=== PATIENT | male | born 1955 | race Caucasian/White ===

== ENCOUNTER 2020-05-18 20:42 | Inpatient (IN) | payer OTHER ==
[~2020-05-18] VITALS: Ht 175.3 cm; Wt 66.2 kg
--- OUTSIDE RECORDS SUMMARY | ~2020-05-18 | XMS | Encounter Summary ---
Demographics + + + | Address | [address] [facility] [facility] | | | [place] [address] | + + + | Home Phone | | + + + | Preferred Language | Unknown | + + + | Marital Status | Single | + + + | Anabaptist Affiliation | Unknown | + + + | Race | Unknown | + + + | Ethnic Group | Unknown | + + + Author + + + | Author | [facility] | | | and [place] | + + + | Organization | Located Within [facility] | | | and [place] | + + + | Address | Unknown | + + + | Phone | Unavailable | + + + Care Team Providers + +------+ + | Care Mix House Operator Name | Role | Phone | + +------+ + PCP | Unavailable | + +------+ + Encounter Details +--------+ + + + + | Date | Type | Department | Care Team | Description | +--------+ + + + + | 01/05/ | Hospital | [facility] | Conversion | Pain | | 2016 | Encounter | CONVERSION DEP [address] | Transaction, | | | | | [address] | Provider Unknown | | | | | [facility] [place] | [phone] | | | | | [phone] | | | | | | [phone] | | | +--------+ + + + + Social History + +-------+ +--------+------+ | Tobacco Use | Types | Packs/Day | Years | Date | | | | | Used | | + +-------+ +--------+------+ | Never Assessed | | | | | + +-------+ +--------+------+ + + + | Sex Assigned at | Date Recorded | | | | + + + | Not on file | | + + + documented as of this encounter Plan of Treatment Not on filedocumented as of this encounter Procedures + +--------+ + + + | Procedure Name | Priori | Date/Time | Associated Diagnosis | Comments | | | ty | | | | + +--------+ + + + | CT ABDOMEN PELVIS W | Routin | 07/06/2015 | | Results for this | | CONTRAST | e | 2:05 AM | | procedure are in the | | | | PDT | | results section. | + +--------+ + + + documented in this encounter Results CT Abdomen Pelvis w Contrast (07/06/2015 2:05 AM PDT) + + | Specimen | + + | | + + + + + | Narrative | Performed At | + + + | This is a non-reportable procedure without a radiologist report and | | | is used for image storage only | | + + + + + | Procedure Note | + + | Mik Salas Sulma - 06/06/2019 1:30 PM PDT This is a non-reportable procedure | | without a radiologist report and isused for image storage only | + + documented in this encounter Visit Diagnoses + + | Diagnosis | + + | Pain Generalized pain | + + documented in this encounter"
--- OUTSIDE RECORDS SUMMARY | ~2020-05-18 | XMS | Clinical Summary ---
Demographics + + + | Address | [address] | | | [place] [address] | + + + | Home Phone | | + + + | Preferred Language | Unknown | + + + | Marital Status | Single | + + + | Anabaptism Affiliation | Unknown | + + + | Race | Unknown | + + + | Ethnic Group | Unknown | + + + Author + + + | Author | [facility] | | | [facility] | + + + | Organization | [facility] | | | and [place] | + + + | Address | Unknown | + + + | Phone | Unavailable | + + + Care Team Providers + +------+ + | Care Road Equipment Operator Name | Role | Phone | + +------+ + | Laz Flaherty MD | PCP | Unavailable | + +------+ + Allergies Not on File Medications Not on file Active Problems Not on file Social History + +-------+ +--------+------+ | Tobacco [...] on file | | + + + Last Filed Vital Signs + + + + + | Vital Sign | Reading | Time Taken | Comments | + + + + + | Blood Pressure | 153/76 | 01/21/2016 12:52 PM | | | | | PDT | | + + + + + | Pulse | 81 | 01/21/2016 12:52 PM | | | | | PDT | | + + + + + | Temperature | - | - | | + + + + + | Respiratory Rate | - | - | | + + + + + | Oxygen Saturation | - | - | | + + + + + | Inhaled Oxygen | - | - | | | Concentration | | | | + + + + + | Weight | 49.9 kg (110 lb) | 01/21/2016 12:52 PM | | | | | PDT | | + + + + + | Height | 177.8 cm (5' 10") | 01/05/2016 9:11 AM | | | | | PDT | | + + + + + | Body Mass Index | 15.78 | 01/05/2016 9:11 AM | | | | | PDT | | + + + + + Plan of Treatment + + +-------+ + | Health Maintenance | Due Date | Last | Comments | | | | Done | | + + +-------+ + | Vaccine: | | | | | Dtap/Tdap/Td (1 - | 2 | | | | Tdap) | | | | + + +-------+ + | Vaccine: Zoster (1 | | | | | of 2) | 3 | | | + + +-------+ + | Vaccine: | | | | | Pneumococcal 65+ (1 | 8 | | | | of 1 - PPSV23) | | | | + + +-------+ + | Vaccine: Influenza | | | | | (#1) | 0 | | | + + +-------+ + Results Not on filefrom Last 3 Months
--- OUTSIDE RECORDS SUMMARY | ~2020-05-18 | XMS | Clinical Summary ---
Demographics + + + | Address | [address] [facility] | | | [place] [address] | + + + | Home Phone | | + + + | Preferred Language | Unknown | + + + | Marital Status | Single | + + + | Alevism Affiliation | Unknown | + + + | Race | Unknown | + + + | Ethnic Group | Unknown | + + + Author + + + | Author | [facility] | | | [facility] | + + + | Organization | [facility] | | | and [place] | + + + | Address | Unknown | + + + | Phone | Unavailable | + + + Care Team Providers + +------+ + | Care Screw Machine Operator Name | Role | Phone | [...]
--- OUTSIDE RECORDS SUMMARY | ~2020-05-18 | XMS | Encounter Summary ---
Demographics + + + | Address | [address] | | | [place] [address] | + + + | Home Phone | | + + + | Preferred Language | Unknown | + + + | Marital Status | Single | + + + | Scientology Affiliation | Unknown | + + + | Race | Unknown | + + + | Ethnic Group | Unknown | + + + Author + + + | Author | [facility] | | | and [place] | + + + | Organization | [facility] | | | and [place] | + + + | Address | Unknown | + + + | Phone | Unavailable | + + + Care Team Providers + +------+ + | Care Engineer Sergeant Name | Role | Phone | + +------+ + PCP | Unavailable | + +------+ + Encounter Details +--------+ + + + + | Date | Type | Department | Care Team | Description | +--------+ + + + + | 03/13/ | Hospital | [facility] | Laz Vizcarra, | Unspecified | | 2008 | Encounter | [facility] | [address] | Hepatitis | | | | CLINICAL DECISION | [place] | | | | | [address] [place] [address] | [id number] | | | | | [place] | | | | | | [phone] | | | | | | [phone] | | | +--------+ + + + [...] + +--------+ + + + | CT GUIDED NEEDLE | Routin | 03/13/2009 | | Results for this | | PLACEMENT | e | 9:31 AM | | procedure are in the | | | | PDT | | results section. | + +--------+ + + + documented in this encounter Results CT Guided Needle Placement (03/13/2009 9:31 AM PDT) + + | Specimen | + + | | + + + + + | Narrative | Performed At | + + + | [id number] | | | Page 1 RADIOLOGY | | | CDU 78489/ | | | [facility] | | | CENTER NAME: [place] [address] | | | | | | | | | DATE OF : 1955 ORDER NUMBER: | | | [id number] EXAM DATE/TIME: 03/13/2009 07:53 A ORDERING PHYSICIAN: | | | LAZ VIZCARRA ORDER DETAIL: [id number] / / HCT EXAM DESCRIPTION: | | | CT GUIDED NEEDLE BIOPSY | | | | | | PROCEDURE CT-guided liver biopsy. HISTORY Hepatitis C. | | | DESCRIPTION OF PROCEDURE The procedure and its risks were discussed | | | with the patient and all questions answered. The patient wished to | | | proceed and an informed consent was signed. The skin over the right | | | lobe of the liver was prepped and draped in the usual sterile fashion | | | and 1% lidocaine was used as local anesthesia. Using CT | | | guidance, a 17-gauge coaxial needle was placed into the right lobe of | | | the liver. A series of 18-gauge core biopsies were then obtained | | | using coaxial technique and submitted to pathology. The needle tract | | | was embolized with Gelfoam and then removed. The procedure was | | | tolerated well, without immediate complication. IMPRESSION Status | | | post CT-guided liver biopsy without incident. Read by SHEN Cintron | | | MD ZAHRAA 03/13/2009 09:24 A Electronically Signed by SHEN Cintron | | | MD ZAHRAA 03/13/2009 12:32 P A DT: | | | 03/13/2009 12:15 P Jeanine/ryann/[id number]/ cc: LAZ VIZCARRA MD | | | SHEN VITAL MD | | + + + + + | Procedure Note | + + | Mik Salas - 06/17/2019 4:50 AM PDT | | [id number] Page 1 | | RADIOLOGY CDU 22906/ | | OPS | | [facility] NAME: [address] | | [place] [address] | | | | DATE OF : 1955 | | | | ORDER NUMBER: [id number] | | EXAM DATE/TIME: 03/13/2009 07:53 A | | ORDERING PHYSICIAN: LAZ VIZCARRA | | ORDER DETAIL: [id number] / / HCT | | EXAM DESCRIPTION: CT GUIDED NEEDLE BIOPSY | | | | PROCEDURE | | CT-guided liver biopsy. | | | | HISTORY | | Hepatitis C. | | | | DESCRIPTION OF PROCEDURE | | The procedure and its risks were discussed with the patient and all | | questions answered. The patient wished to proceed and an informed | | consent was signed. The skin over the right lobe of the liver was | | prepped and draped in the usual sterile fashion and 1% lidocaine was | | used as local anesthesia. | | | | Using CT guidance, a 17-gauge coaxial needle was placed into the right | | lobe of the liver. A series of 18-gauge core biopsies were then obtained | | using coaxial technique and submitted to pathology. The needle tract was | | embolized with Gelfoam and then removed. | | | | The procedure was tolerated well, without immediate complication. | | | | IMPRESSION | | Status post CT-guided liver biopsy without incident. | | | | Read by | | SHEN VITAL MD 03/13/2009 09:24 A | | Electronically Signed by | | SHEN VITAL MD 03/13/2009 12:32 P | | | | A | | P | | NATHANIEL/ryann/[id number]/ | | cc: LAZ VIZCARRA MD | | SHEN VITAL MD | + + documented in this encounter Visit Diagnoses + + | Diagnosis | + + | Hepatitis, unspecified | + + documented in this encounter"
--- OUTSIDE RECORDS SUMMARY | ~2020-05-18 | XMS | Encounter Summary ---
Demographics + + + | Address | [address] | | | [place] [address] | + + + | Home Phone | | + + + | Preferred Language | Unknown | + + + | Marital Status | Single | + + + | Yarsani Affiliation | Unknown | + + + | Race | Unknown | + + + | Ethnic Group | Unknown | + + + Author + + + | Author | [facility] | | | and [place] | + + + | Organization | [facility] | | | and [place] | + + + | Address | Unknown | + + + | Phone | Unavailable | + + + Care Team Providers + +------+ + | Care Personal Consultant Name | Role | Phone | + +------+ + PCP | Unavailable | + +------+ + Encounter Details +--------+ + + + + | Date | Type | Department | Care Team | Description | +--------+ + + + + | 01/05/ | Hospital | [facility] | Conversion | Pain | | 2016 | Encounter | CONVERSION DEP [address] | Transaction, | | | | | [address] | Provider Unknown | | | | | [facility] [place] | [phone] | | | | | [phone] | | | | | | [phone] | | | +--------+ + + + [...]
--- OUTSIDE RECORDS SUMMARY | ~2020-05-18 | XMS | Encounter Summary ---
Demographics + + + | Address | [address] [facility] [facility] | | | [place] [address] | + + + | Home Phone | | + + + | Preferred Language | Unknown | + + + | Marital Status | Single | + + + | Rastafarian Affiliation | Unknown | + + + | Race | Unknown | + + + | Ethnic Group | Unknown | + + + Author + + + | Author | [facility] | | | and [place] | + + + | Organization | [facility] | | | and [place] | + + + | Address | Unknown | + + + | Phone | Unavailable | + + + Care Team Providers + +------+ + | Care News Camera Operator Name | Role | Phone | + +------+ + PCP | Unavailable | + +------+ + Encounter Details +--------+ + + + + | Date | Type | Department | Care Team | Description | +--------+ + + + + | 03/13/ | Hospital | [facility] | Laz Vizcarra, | Unspecified | | 2008 | Encounter | [facility] | [address] | Hepatitis | | | | CLINICAL DECISION | [place] | | | | | [address] [place] [address] | [address] | | | | | [place] | | | | | | [phone] | | | | | | [phone] | | | +--------+ + + + [...] Performed At | + + + | [id number] | | | Page 1 RADIOLOGY | | | CDU 19934/ | | | [facility] | | | CENTER NAME: [place] [address] | | | | | | | | | DATE OF : 1955 ORDER NUMBER: | | | [id number] EXAM DATE/TIME: 03/13/2009 07:53 A ORDERING PHYSICIAN: [...] DT: | | | 03/13/2009 12:15 P Jeanine/ryann/[id number]/ cc: LAZ VIZCARRA MD | | | SHEN VITAL MD | | + + + + + | Procedure Note | + + | Mik Salas - 06/17/2019 4:50 AM PDT | | [id number] Page 1 | | RADIOLOGY CDU 09341/ | | OPS | | [facility] NAME: [address] | | [place] [address] | | | | DATE OF : 1955 | | | | ORDER NUMBER: [id number] | | EXAM DATE/TIME: 03/13/2009 07:53 A [...] | A | | P | | NATHANIEL/ryann/[id number]/ | | cc: LAZ VIZCARRA MD | | SHEN VITAL MD | + + documented in this encounter Visit Diagnoses + + | Diagnosis | + + | Hepatitis, unspecified | + + documented in this encounter"
[~2020-05-18 20:42] MED LIST: ASPIRIN EC325 MG PO; BENZTROPINE MESY1 MG PO; COZAAR25 MG PO; DOCUSATE SODIU250 MG PO; DOXEPIN HCL10 MG PO; IBUPROFEN600 MG PO; LIPITOR20 MG PO; METFORMIN HCL500 MG PO; NORCO 5-325 TA1 EACH PO; PROZAC10 MG PO
--- NOTE | 2020-05-19 | NUR ---
BROUGHT pt FROM ED TO UNIT ON STRETCHER, pt ABLE TO MOVE SELF TO BED. WRIST, ANKLE AND BELLY SHACKLES PER JAMES HERNÁNDEZ, 2 AT BEDSIDE. THIS RN IN ROOM FOR ASSESSMENT AND ADMISSION.
--- NOTE | 2020-05-19 01:00 | NUR ---
ASSESSMENT DONE. UNABLE TO AUSCULTATE DUE TO PAPR. NEWMAN PLACED, CLEAR URINE RETURNED. IVF INFUSING PER ORDERS, MED GIVEN (SEE MAR). OKAY FROM [facility] TO REMOVE ONE WRIST SHACKLE AT A TIME SO pt CAN LAY ON SIDE. LEFT SHACKLE REMOVED. pt POSITIONED ON LEFT SIDE, WITH MULTIPLE PILLOWS. ON 3L O2 VIA NC. NO REQUESTS AT THIS TIME. GUARDS REMAIN AT BEDSIDE.
--- NOTE | 2020-05-19 02:30 | NUR ---
ROUNDED ON pt. PROVIDED FRESH WATER. NO FURTHER REQUESTS AT THIS TIME. GUARDS AT BEDSIDE.
--- NOTE | 2020-05-19 03:30 | NUR ---
ASSESSMENT DONE. pt REPORTED THAT IT STILL "FEELS TIGHT TO BREATH" REPOSITIONED TO RIGHT SIDE, LEFT WRIST SHACKLED, RIGHT WRIST FREE. NEWMAN EMPTIED. NO FURTHER REQUESTS AT THIS TIME. GUARDS AT BEDSIDE.
--- NOTE | 2020-05-19 05:03 | NUR ---
IV INFUSION COMPLETED. SL. LABS DRAWN. ATTEMPTED TO TITRATE O2 DOWN, pt DESAT TO 80'S BACK TO 3L O2. pt REPOSITIONED TO SIT STRAIGHT UP. ENCOURAGED MOVEMENT. ANKLE, BELLY, AND LEFT WRIST SHACKLES IN PLACE. TWO GUARDS AT BEDSIDE. NO FURTHER REQUESTS. CALL LIGHT WITHIN REACH.
--- NOTE | 2020-05-19 09:01 | NUR ---
IN ROOM FOR ASSESSMENT AND VITALS, MEDS, BREAKFAST. PT STAETS HE IS FEELING BETTER OVERALL, BUT STILL NOTES THE TIGHTNESS IN HIS CHEST. PATIENT DENIES PAIN OTHERWISE. PT TO BE STARTED ON REMDESIVIR TODAY. RT IN ROOM. PT CURRENTLY ON 4 L NC. CONTINUE TO MONITOR.
--- NOTE | 2020-05-19 09:24 | NUR ---
DISCUSSED PLAN OF CARE AT LENGTH WIHT PATIENT. DISCUSSED NEED TO INITIATE PRONING AND POSITION CHANGES IN BED. DISCUSSED POTENTIAL NEED FOR MECHANICAL VENTILATION IF THINGS WORSEN WITH RESPIRATORY STATUS. PATIENT EXPRESSES DESIRES THAT THIS IS SOMETHING HE WOULD WANT IF HIS RESPIRATORY STATUS WORSENED. PT HAS HAD TO BE TURNED UP TO 6 L WHILE SITTING UP TRYING TO EAT. PT SEEMS TO DESATURATE WITH ANY USE OF ENERGY. WILL MONITOR THIS CLOSELY. IV REMDESIVIR STARTED.
[2020-05-19] MEDS ORDERED: CAPZASIN-HP42.5 GM TOP (09:32)
[2020-05-19] MEDS ORDERED: ALLERGY EYE DRO10 M1 OU (09:45)
[2020-05-19] MEDS ORDERED: NAPHCON-A EYE D15 ML OU (09:46)
[2020-05-19] MEDS ORDERED: VENTOLIN HFA18 GM INH (10:22)
[2020-05-19] MEDS ORDERED: DOXEPIN HCL100 MG PO (10:24)
[2020-05-19] MEDS ORDERED: BIOTENE ORALBAL42 G1 MM (10:24)
[2020-05-19] MEDS ORDERED: PROSCAR5 MG PO (10:27)
[2020-05-19] MEDS ORDERED: HALOPERIDOL1 MG PO (10:28)
[2020-05-19] MEDS ORDERED: OMEPRAZOLE20 MG PO (10:30)
[2020-05-19] MEDS ORDERED: DITROPAN XL10 MG PO (10:31)
[2020-05-19] MEDS ORDERED: DOXYCYCLINE MO100 MG PO (10:33)
[2020-05-19] MEDS ORDERED: PREDNISONE20 MG PO (10:34)
--- NOTE | 2020-05-19 10:34 | NUR ---
MED REC COMPLETE
--- NOTE | 2020-05-19 10:48 | NUR ---
DR. DANIELS IN TO SEE PATIENT AT THIS TIME.
--- NOTE | 2020-05-19 11:00 | NUR ---
PATIENT IN ISOLATION DUE TO COVID. SPOKE WITH PRODUCT DEVELOPMENT WORKER. SHE STATES PATIENT IS NORMALLY INDEPENDENT AND NO KNOWN BARRIERS TO RETURN TO [facility] AT DISCHARGE.
--- NOTE | 2020-05-19 11:21 | NUR ---
PATIENT INTO PRONE POSITION WITH HELP OF GUARDS AT THIS TIME. PT ABLE TO STAND AT BEDSIDE, ALTHOUGH IS RELATIVELY UNSTEADY ON FEET. SP02 DOWN TO MID 70s WITH ACTIVITY, OXYGEN INCREASED DURING THIS TIME BUT NOW BACK AT 4 L NC. PT STATES HE IS COMFORTABLE AND WILL TRY AND REST IN THIS POSITION FOR LONG POSSIBLE. DISCUSSED WITH PATIENT NEED FOR PICC LINE PLACEMENT THIS AFTERNOON AN D AGREEABLE TO THIS. BELLY CHAIN AND WRIST CUFFS REMOVED PER [facility] GUARDS. NEWMAN REMAINS INTACT. CONTINUE TO MONITOR.
--- NOTE | 2020-05-19 12:51 | NUR ---
PICC LINE NURSE IN ROOM TO PLACE PICC LINE. PATIENT ABLE TO PRONE FROM [phone]. PATIENT USES CALL LIGHT AND STATES HE WANTS TO TURN OVER. PATIENT ABLE TO STAND AT SIDE OF BED WITH ASSISTANCE, BUT IS VERY WEAK. SP02 DOWN TO 70s WITH THIS MOVEMENT ON 4 L. PATIENT TURNED UP TO 6 L. DENTURES CLEANED OUT AND FIXODENT USED TO REPLACE. PATIENT NOW ON OXYMASK AT 10 L AND ONLY SP02 90-91%.
--- NOTE | 2020-05-19 13:51 | NUR ---
PICC INSERTION NOTE. ORDERS RECIEVED TO EVALUATE ADONIS FOR POSSIBLE PICC INSERTION. AFTER REVIEWING THE CHART AND INTERVIWING THE PT, NO ABSOLUTE CONTRAINDICATIONS WERE FOUND. RISKS AND COMPLICATIONS OF PICC LINES WERE DISCUSSED AND INFORMED CONSENT WAS SIGNED PRIOR TO THE START OF THE PROCEDURE. ADONIS UNDERSTANDS THAT HE NEEDS TO ASK HIS CARE TEAM FOR ANY QUESTIONS REGARDING HIS PICC. THE RIGHT BASILIC VEIN WAS ACCESSED AT 1.5CM BELOW THE SKIN AND THERE WERE NO DIFFICULTIES ADVANCING THE IV, GUIDEWIRE, INTRODUCER, OR PICC. A MAGNET TRACKER WAS USED AND SHOWED THE TIP IN A CENTRAL LOCATION. A SINGLE CXR WAS TAKEN AND STERILE DRESSING WAS APPLIED. THE PICC DRAWS BLOOD AND FLUSHES EASILY. A NON STERILE LIGHT PRESSURE DRESSING WAS PLACED OVER THE INSERTION SITE TO REDUCE BRUISING AND BLEEDING. THE PT TOLERATED THE PROCEDURE WELL.
--- NOTE | 2020-05-19 14:25 | NUR ---
PT IN ISOLATION, WITH 2 GUARDS FROM [facility] IN PT RM. WILL FOLLOW NEEDED
--- NOTE | 2020-05-19 14:48 | NUR ---
PATIENT TURNED ONTO LEFT SIDE IN BED AT 1430. OXYGEN TURNED BACK TO DOWN TO 6 L OXYMASK. NEWMAN EMPTIED FOR 300 CONCENTRATED URINE. CONTINUE TO MONITOR. 2 GUARDS REMAIN IN ROOM.
--- NOTE | 2020-05-19 17:35 | NUR ---
PATIENT HELPED TO SIT UP IN BED TO EAT DINNER. PT REPORTS THAT HIS BREATHING FEELS TIGHT IN HIS CHEST STILL, AND WORSE COMPARED TO YESTERDAY AND THIS AM. PT NOW ON VAPOTHERM AT 50% AND 40 L FLOW. NEWMAN EMPTIED FOR 160 ML. PICC WORKING WELL, FLUSHIGN AND DRAWS BACK BLOOD WELL. APPLE JUICE GIVEN FOR LOW CBG OF 54. CONTINUE TO MONIOTR.
--- NOTE | 2020-05-19 19:30 | NUR ---
Report received, orders acknowledged. Patient sitting up at edge of bed with feet on floor. Two guards at bedside. Call light within reach.
--- NOTE | 2020-05-19 21:00 | NUR ---
Patient laying on back, respirations even and unlabored. SpO2 in the upper 90's on vapotherm, settings at 40L and Fi02 of 50%. Vital signs taken, assessment complete. PM medications given. BG of 112, no insulin given. Santos catheter emptied, 275 mls of concentrated urine. Patient positioned onto right side, warm blanket provided. Patient denies further needs at this time, call light within reach.
--- NOTE | 2020-05-19 23:00 | NUR ---
Patient laying on left side, respirations even and unlabored. SpO2 of 97% on vapotherm, settings at 40L, Fi02 of 50%. Two guards at bedside. Call light wihtin reach.
--- NOTE | 2020-05-20 00:15 | NUR ---
Patient laying in bed, respirations even and unlabored. SpO2 in mid-90;s on vapotherm, settings at 40L, 50% Fi02. Vital signs taken, assessment complete. Patient able to stand up at edge of bed with 1PA, HR increases to low 100's. New linens changed on bed. Patient returned to bed, assisted into prone position in reverse trendelenburg. HR decreases to the 70's, SpO2 increases to 98%. Two correctional officers at bedside, patient in ankle cuffs. Patient denies further needs, call light within reach.
--- NOTE | 2020-05-20 02:20 | NUR ---
Patient sleeping in bed in prone position with the bed in reverse trendelenburg. Vapotherm in place, settings of 40L and 50% Fi02 with an Sp02 of 99%. Call light within reach.
--- NOTE | 2020-05-20 03:55 | NUR ---
Patient sleeping in bed on right side, respirations even and unlabored. Sp02 of 98% on vapotherm: settings at 40L and 50% Fi02. Patient rouses easily to voice. Vital signs taken, assessment complete. Santos catheter emptied with 275 mls of yellow urine. Two correctional officers at bedside, patient in ankle cuffs. Denies needs at this time, call light within reach.
--- NOTE | 2020-05-20 05:30 | NUR ---
Patient sleeping in bed on left side, respirations even and unlabored. Sp02 of 98% on vapotherm: settings at 40L and 50% Fi02. Patient rouses easily to voice. PICC line assessed, flushes and draws blood per protocol. Labs drawn and sent off. Patient denies needs, falls back asleep easily. Call light within reach.
--- NOTE | 2020-05-20 07:32 | NUR ---
REPORT RECEIVED FROM DWAYNE KUMARI. PT RESTING ON LEFT SIDE WITH EYES CLOSED. OFFICERS AT BEDSIDE. VAPOTHERM AT 40L AND 50% WITH O2 SATURATION OF 98%. RR=23 . NO REQUESTS OR COMPLAINTS AT THIS TIME. BREAKFAST ORDERED. CALL LIGHT WITHIN REACH.
--- NOTE | 2020-05-20 09:00 | NUR ---
MORNING ASSESSMENT AND MEDICATION DUE. PT WATCHING TV. PT DENIES PAIN AND NAUSEA AND STATES HE FEELS "BETTER" TODAY. PT TOLERATING VAPO THERM WITH SETTINGS AT 40LPM AND 45% O2 AT 96%. PT WEANED TO 40%, PT TOLERATING WELL WITH O2 SATURATIONS REMAINING ABOVE 92%. ASSESSMENT DONE. UNABLE TO ASCULATATE LUNG, HEART AND BOWEL TONES R/T PAPAR UNIT IN PLACE. PT DECLINES MIRALAX AND SENNA STATING HE IS HAVING BOWEL MOVMENT. PT DENIES NEED TO USE RESTROOM AT THIS TIME. NEWMAN DRAINING TO GRAVITY. OLD ABRASION NOTED TO LEFT KNEE. OLD SCABS IN PLACE. MEDICATIONS GIVEN. PICC LINE SHOWS GOOD BLOOD RETURN. NO ADDITIONAL REQUESTS OR COMPLAINTS. OFFICERS AT BEDSIDE. CALL LIGHT WITHIN REACH.
--- NOTE | 2020-05-20 09:39 | NUR ---
PUMP ALARMING, INFUSION AND FLUSH COMPLETE. PICC LINE ASSESSED, BRISK BLOOD RETURN NOTED. LINE FLUSHED AND HEPARIN LOCKED PER PROTOCOL. ALCOHOL CAP APPLIED. PT CONTINUES TO MAINTAIN O2 SATURATIONS ABOVE 92% ON VAPOTHERM AT 40LPM AND 40%FIO2. PT WATCHING TV. NO ADDITIONAL REQUESTS OR COMPLAINTS. CALL LIGHT WITHIN REACH. OFFICERS AT BEDSIDE.
--- NOTE | 2020-05-20 10:25 | NUR ---
THIS RN TO BEDSIDE TO CHECK ON PT. PT RESTING WITH EYES CLOSED, RR EVEN AND UNLABORED. O2 SATURATION REMAINS ABOVE 92% ON VAPOTHERM AT 40LPM AND 40% FIO2. PT ALLOWED TO REST. OFFICERS AT BEDSIDE.
--- NOTE | 2020-05-20 11:30 | NUR ---
PT REPOSITIONED TO PRONE POSITION. PILLOWS USED TO PROP PT FOR COMFORT. PT REPORTS FEELING COMFORTABLE. O2 SATURATION AT 95% WITH PT ON VAPOTHERM SETTINGS OF 40LPM AT 40FIO2. PT RESTING WITH EYES CLOSED. RR = 15, EVEN AN UNLABORED. OFFICER AT BEDSIDE. NEWMAN CATHETER EMPTIES. NO ADDITIONAL REQUESTS OR COMPLAINTS AT THIS TIME.
--- NOTE | 2020-05-20 12:39 | NUR ---
NOON ASSESSMENT AND MEDICAITON DUE. PT FINISHED RESTING IN PRONE POSITION. PT UP TO EDGE OF BED FOR LUNCH. ASSESSMENT DONE. PT DENIES PAIN AND NAUEA AND CONTINES TO STATES HIS BREATHING IS "BETTER." PT REPORTS FEELING HE CAN BREATH BETTER THAN HE COULD THIS MORNING. PTS ABODMEN FIRM TO TOUCH. PT REPORTS THIS IS NORMAL BUT AGREES TO TAKE MIRALAX. TREMORS NOTED. PT REPORS TREMORS ARE PER HIS BASELINE. 1 PERSON ASSIST UP TO CHAIR. LINENES CHANGED. PT DEMONSRATES USE OF CORNET X5 AND I.S. REACHING 1250ML. NO ADDITIONAL REQUESTS OR COMPLAINTS AT THIS TIME. CALL LIGHT WITHIN REACH. OFFICERS AT BEDSIDE.
--- NOTE | 2020-05-20 13:40 | NUR ---
PT IS STILL UNDER PRECAUTIONS. [facility] GUARDS POSTED BOTH IN AND OUTSIDE OF PT'S RM.
--- NOTE | 2020-05-20 14:39 | NUR ---
THIS RN TO ROOM TO CHECK ON PT. PT NOW ON HIGH FLOW NASAL CANULA PER RT AT 15 LITERS. O2 SATURATION AT 96%. PT REMAINS UP TO CHAIR. OFFICER AT BEDSIDE. CALL LIGHT WITHIN REACH. NO ADDITIONAL REQUESTS OR COMPLAINTS AT THIS TIME.
--- NOTE | 2020-05-20 16:27 | NUR ---
AFTERNOON ASSESSMENT DUE. PT REMAINS UP TO CHAIR. PT DENIES PAIN AND NAUSEA. PT REPORTS OCCATIONAL SHOTNESS OF BREATH. CORNET USED X5 AND I.S. USE DEMONSTRATED REACHING 1250. 1 PERSON ASSIST BACK TO BED. O2 SATURATION REMAINS ABOVE 92% ON 15L O2 BY HIGH FLOW NASAL CANULA. ABODOMEN REAMAINS UNCHANGED BUT PT REPORTS "FEELING MUCH BETTER" NOW THAT HE HAD A BOWEL MOVMENT. CATHETER CARE AND MESFIN CARE PERFORMED. PT DENIES ADDITIONAL REQUESTS OR COMPLAINTS. WATER AND 7-UP REFILLED. OFFICER AT BEDSIDE. CALL LIGHT WITHIN REACH.
--- NOTE | 2020-05-20 17:55 | NUR ---
PT HERE FOR COVID POSITIVE PNEUMONIA. PT UP TO CHAIR WITH 1 PERSON ASSIST. PT ALSO SPENT 1 HOUR IN PRONE POSITION THIS SHIFT. PT BEGAIN SHIFT ON VAPOTHERM AT 40LPM AND 50% FIO2. PT WEANED THIS SHIFT TO HIGH FLOW NASAL CANULA AT 15 LITERS WITH O2 SATURATIONS ABOVE 92%. NEWMAN CATHETER REMAINS IN PLACE, QUANITTY SUFFICIENT. PT AFEBRIAL THIS SHIFT. PICC LINE WNL, BRISK BLOOD RETURN, HEPARIN LOCKED. RESTRAINTS PER [employer] REAMIN IN PLACE PER OFFICERS. PT HAS YET TO USE CALL LIGHT, OFFICERS CALL WITH NEEDS.
--- NOTE | 2020-05-20 18:23 | NUR ---
THIS RN TO ROOM TO CHECK ON PT. PT RESTING ON BACK WITH EYES CLOSED. HEAD OF BED ELEVATED AT 30 DEGREES, RR = 26. O2 AT 100% ON HIGH FLOW NASAL CANULA AT 15L. PT ALLOWED TO REST. BED RAILS UP. CALL LIGHT WITHIN REACH. OFFICERS AT BEDSIDE.
--- NOTE | 2020-05-20 19:15 | NUR ---
Report received, orders acknowledged. Patient laying in bed watching tv. High flow oxygen at 15L in place, SpO2 of 90%. Call light within reach.
--- NOTE | 2020-05-20 21:15 | NUR ---
Patient laying in bed with high flow oxygen at 15L in place, Sp02 of 95% and RR in the low 20's. Vital signs taken, assessment complete. PM medications given. One security officers and guards in room at bedside, one security officers and guards sitting outside of room. Abdominal chain removed in order to be able to position patient throughout shift. Patient now laying on left side. Water refreshed, warm blanket provided. PICC line assessed, flushes and returns blood per protocol. PICC line hep locked. Patient denies further needs at this time, call light within reach.
--- NOTE | 2020-05-20 22:00 | NUR ---
Patient on high flow oxygen at 15L, oxygen saturations down to 79%. Patient laying on left side currently. Patient assisted to a prone position in reverse trendelenburg and instructed to take breathe through nostrils. Oxygen saturations climb to mid 90's after several minutes. RR remains in the low 20's but patient reports "I've been feeling more short of breath all day since I stopped wearing the other oxygen (vapotherm)." HR in the 60's. Patient denies further needs. Call light within reach. Will continue to monitor.
--- NOTE | 2020-05-20 22:30 | NUR ---
Patient on high flow oxygen at 15L, in prone position in reverse trendelenburg. Saturations steadily decrease to the low 80's. RT called. This RN and RT in room to assess patient. Vapotherm put in place with settings at 40L and 60% FiO2. SpO2 climbs to 95%, RR in the low 20's. Patient continues to be in prone position in reverse trendelenburg. Call light within reach. *Prior to patient putting on vapotherm, acapella is used, which helps patient to cough
--- NOTE | 2020-05-21 01:00 | NUR ---
Patient sleeping in bed on left side, respirations even and unlabored. Vapotherm in place, settings at 40L and Fi02 of 60%. SpO2 of 99%, RR of 22. One licensed loan officer at bedside. One licensed loan officer outside of room. Call light within reach.
--- NOTE | 2020-05-21 02:01 | NUR ---
Patient sleeping in bed on left side, in reverse trendelenburg. Vapotherm in place, settings at 40L and 60% Fi02. SpO2 of 98-100%, RR of 18. One canine enforcement officer in room at bedside. One canine enforcement officer outside of room. Ankle cuffs in place. Call light within reach.
--- NOTE | 2020-05-21 03:00 | NUR ---
Patient sleeping in bed on left side, respirations even and unlabored. Vapotherm in place, settings at 40L and 60% Fi02. RR of 18, SpO2 of 96%. Ankle cuffs in place, one chairman and chief executive officer at bedside. One chairman and chief executive officer outside of room. Call light within reach of patient.
--- NOTE | 2020-05-21 06:00 | NUR ---
Patient sleeping in bed, respirations even and unlabored. Vapotherm in place with settings of 40L and 60% Fi02, SpO2 of 99%. RR of 18. Patient rouses easily to voice. Labs drawn from PICC line, which flushes and returns blood per protocol. New clave placed on PICC. Patient coughed up small, pink mucous into emesis bag. Water provided, patient denies further needs. Call light within reach.
--- NOTE | 2020-05-21 08:31 | NUR ---
Patient sitting up in bed. Respirations even and unlabored at this time. Bed rails up X2. Call light in reach.
--- NOTE | 2020-05-21 09:33 | NUR ---
Assessment completed. Patient denies shortness of breath. Alert and oriented, sitting up in bed, eating breakfast. Denies pain and discomfort. Call light in reach, bed rails up X2. Circulation remains intact. wearing [employer] cuffs. Denies other needs. Takes AM medications without difficulty.
--- NOTE | 2020-05-21 10:01 | NUR ---
Sitting up in bed, remains on vapotherm at this time. Respirations even and unlabored. Denies shortness of breath. Call light in reach, bed rails up X2. PICC line converted to hep lock. Denies other needs.
--- NOTE | 2020-05-21 11:01 | NUR ---
Sitting up in bed, watching TV. Respirations remain even and unlabored. Call light in reach, bed rails up X2.
--- NOTE | 2020-05-21 12:43 | NUR ---
Sitting up in bed, eating lunch. Resp even and unlabored. Assessment completed. No changes from AM assessment noted. Call light in reach, bed rails elevated and restraints from [employer] remain in place with no changes to patient circulation noted.
--- NOTE | 2020-05-21 12:55 | NUR ---
BECAUSE OF RESTRICTIONS, I AM UNABLE TO VISIT PT. PT IS FLANKED BY [employer] GUARDS
--- NOTE | 2020-05-21 13:47 | NUR ---
Head of bed, laid flat, patient turned to left side lying position. Santos bag emptied. Call light in reach, Bed rails up X2. Denies pain, shortness of breath and other needs at this time.
--- NOTE | 2020-05-21 14:34 | NUR ---
Lying on left side with eyes closed, respirations even and unlabored at this time. O2 sats 93%, remains on Vapotherm, respirations 22 at this time. Allowed to rest at this time.
--- NOTE | 2020-05-21 15:35 | NUR ---
Turned to right side. O2 sats remain in mid to high 90's on Vapotherm. Denies pain and other needs at this time. Call light in reach. Be rails up X2.
--- NOTE | 2020-05-21 17:34 | NUR ---
Assessment completed. Denies pain and other needs at this time. Head of bed elevated, patient currently in semi-bean's position for supper. VS obtained, Santos catheter bag emptied. Call light in reach, bed rails up X2. Remains in [employer] restraints. Circulation remains WNL. some bruising to Right forearm noted.
--- NOTE | 2020-05-21 19:30 | NUR ---
SHIFT REPORT RECEIVED. PATIENT LAYING ON BACK IN BED WITH HOB AT 30 DEGREES. O2 SAT 86% ON VAPOTHERM AT 30L 50% Fi02.
--- NOTE | 2020-05-21 20:03 | NUR ---
PATIENT REPOSITIONED ONTO LEFT SIDE. DENIES FEELING SOB. RR 20. VAPOTHERM ADJUSTED TO 30L 60% Fi02. O2 SATS IMPROVED TO 89% AFTER 3-5 MINS. PATIENT ATE 80% OF HIS DINNER. DENIES GI UPSET. GOOD URINE OUTPUT IN NEWMAN. ORAL TEMP WNL. PICC LINE RETURNED BLOOD AND SL WITH 20 MLS. IV SITE IN LEFT FA FLUSHED EASILY. PATIENT DENIED ANY NEEDS. CALL LIGHT IN REACH.
--- NOTE | 2020-05-21 20:40 | NUR ---
PATIENT PROVIDED WITH EVENING MEDS. PATIENT ENCOURAGED TO STAY ON HIS HIGH LEFT SIDE TOLERATED. PATIENT AGREEABLE. O2 SAT 94%, TITRATED TO 30L 55% Fi02. RR 18. PATIENT PROVIDED WITH FRESH WATER. DENIES ANY NEEDS. CALL LIGHT IN REACH.
--- NOTE | 2020-05-21 22:45 | NUR ---
PATIENT DESAT TO 85% WITHOUT IMPROVEMENT. STAFF ASSISTED PATIENT TO REPOSITION TO RIGHT SIDE. NEW PULSE OX SENSOR PLACED. O2 SAT IMPROVED TO 94% ON VAPOTHERM AT 30L 55% Fi02. PATIENT DENIED ANY CONCERNS. LIGHTS DIMMED AND TV OFF PER REQUEST. CALL LIGHT IN REACH.
--- NOTE | 2020-05-22 00:30 | NUR ---
PATIENT APPEARED TO BE SLEEPING SOUNDLY. WOKE ONLY WHEN RN TOUCHED PATIENT. PATIENT REPORTS BEING COMFORTABLE. VS STABLE, NO FEVER. UNACCURATE BP DUE TO PATIENT LAYING ON RIGHT SIDE WITH CUFF ON LEFT ARM. ALLOWED PATIENT TO REST. CALL LIGHT IN REACH. TOLERATING VAPOTHERM AT 30L 55% Fi02. O2 SATS 88-92%.
--- NOTE | 2020-05-22 03:30 | NUR ---
PATIENT HAVING INCREASED COUGHING WITH DESATS 77-80% WITH GOOD PLETH. STAFF IN ROOM. PATIENT PROVIDED WITH SIPS OF WATER AND REPOSITIONED TO LEFT SIDE. PATIENT TOLERATED WELL. DENIES FEELING SOB. VS STABLE. GOOD URINE OUTPUT. PATIENT DENIES ANY NEEDS. CALL LIGHT IN REACH.
--- NOTE | 2020-05-22 06:01 | NUR ---
PATIENT SLEEPING SOUNDLY. WOKE TO TOUCH. DENIES PAIN, SOB OR ANY CONCERNS. MORNING LABS DRAWN. PICC LINE FLUSHES EASILY AND RETURNS BLOOD SWIFTLY. LINE SL. VS STABLE. NEWMAN EMPTIED. PATIENT PROVIDED WITH CHAPSTICK AND FRESH ICE WATER. CALL LIGHT IN REACH. 97% ON VAPOTHERM AT 55% Fi02, TITRATED TO 50% Fi02 30L.
--- NOTE | 2020-05-22 08:50 | NUR ---
PT LAYING IN BED AWAKE AND ALERT. PT ASSISTED TO SIT AT THE SIDE OF THE BED FOR BREAKFAST, VAPOTHERM IN PLACE TITRATED UP BRIEFLY FOR ACTIVITY. PT IS ALERT AND ORIENTED X4 TO BASELINE, COOPERATIVE AND POLITE. PT HAS CORRECTIONAL RESTRAINTS IN PLACE X3 LIMBS, BELLY CHAIN.
--- NOTE | 2020-05-22 09:30 | NUR ---
PT ASSISTED UP TO THE CHAIR WITH STANDBY ASSIST FOR CORD MANAGEMENT. PT SELENE ACTIVITY WELL, DENIES PAIN, NAUSEA AND SOB. O2 REQUIREMENTS DECREASED ONCE POSITIONED UP IN THE CHAIR TO 30L/40%. CALL LIGHT IS WITHIN REACH. JAMES DUEÑAS AT THE BEDSIDE. PT ABLE TO PUT IN DENTURES WITH DENTURE CREAM. ALL LINENS CHANGED ON BED. NEWMAN CATH IN PLACE, DRAINING YELLOW URINE. CORRECTIONAL RESTRAINTS IN PLACE X3 LIMBS WITH BELLY CHAIN, SKIN INTEGRITY ASSESSED.
--- NOTE | 2020-05-22 10:15 | NUR ---
PICC LINE RETURNS BLOOD EASILY, HEP LOCKED, SITE IS INTACT, NO REDNESS OR SWELLING NOTED.
--- NOTE | 2020-05-22 12:30 | NUR ---
PT SITTING UP IN THE CHAIR WITH VAPOTHERM IN PLACE. PT ABLE TO EAT 100% OF HIS LUNCH, FEEDS HIMSELF. PT DENIES PAIN, NAUSEA, AND SOB AT THIS TIME. PICC SITE IS INTACT, NO REDNESS OR SWELLING NOTED. CALL LIGHT IS WITHIN REACH. DISCUSSED PLAN FOR BEDBATH LATER TODAY. IV SITE IN RT FOREARM IS INTACT, NO REDNESS OR SWELLING NOTED, FLUSHES EASILY. CORRECTIONAL RESTRAINTS IN PLACE X3 LIMBS WITH BELLY CHAIN, SKIN ASSESSED FOR INTEGRITY AND COMFORT.
--- NOTE | 2020-05-22 14:15 | NUR ---
FULL BEDBATH DONE BY COGNOS ANALYST AND RN. NEWMAN CATH CARES DONE. HAIR WASHED. PT SELENE WELL. PT BACK TO BED FROM CHAIR. PT NOTED TO HAVE RED AREA ON RT LOW BACK FROM BELLY CHAIN, JAMES DUEÑAS AT BEDSIDE, DISCUSSION OPTIONS INSTEAD OF BELLY CHAIN FOR RESTRAINT TO PROTECT SKIN ITEGRETY. PT POSITIONED ON LEFT SIDE WITH VAPOTHERM IN PLACE. PT DENIES PAIN, NAUSEA, AND SOB.
--- NOTE | 2020-05-22 14:40 | NUR ---
THIS BATCH MIXER ASSISTED DWAYNE GAUTHIER IN ROOM. BEDBAPATY MCMAHAN CAR EAND PATIENT VITALS COMPLETE. THIS BATCH MIXER NOTICE MARKINGS ON PATIENTS RIGHT/BACK SIDE FROM BELLY CHAIN, SKIN NOT BROKEN, RN NOTIFIED. 1 GUARD IN ROOM, 1 AT DOOR. CALL LIGHT IN REACH, NO OTHER NEEDS AT THIS TIME
--- NOTE | 2020-05-22 15:20 | NUR ---
[employer] BUSINESS MANAGER CUFF RESTRAINTS APPLIED TO PT INSTEAD OF CHAIN STYLE RESTRAINT BY JAMES SIMMONS FOR SKIN INTEGRITY.
--- NOTE | 2020-05-22 16:52 | NUR ---
pt vapotherm titrated to 35L flow with 45% fio2 per O2 sat of 83-88%
--- NOTE | 2020-05-22 17:35 | NUR ---
PT GIVEN DINNER WHILE SITTING UP HIGH IN BED. VAPOTHERM IN PLACE. CALL LIGHT IS WITHIN REACH, JAMES DUEÑAS AT THE BEDSIDE.
--- NOTE | 2020-05-22 17:50 | NUR ---
SKIN ASSESSED FOR PT COMFORT AND SAFETY DUE TO CORRECTIONAL RESTRAINTS
--- NOTE | 2020-05-22 18:08 | NUR ---
VAPOTHERM TITRATION - 927 - TRITRATED TO 30L AND 40% FROM 30L/50% 1415 - TITRATED TO 35L/60% DURING REPOSITON 1530 - TITRATED TO 30L/50% PT SELENE WELL
--- NOTE | 2020-05-22 19:45 | NUR ---
PATIENT DESAT TO 82% ON VPOTHERM AT 30L AND 45% Fi02. PATIENT SITTING UPRIGHT IN BED. RR 22. PATIENT DENIED FEELING SOB. CONSIDERED PATIENT'S TENDENCY TO BREATHE THROUGH HIS MOUTH, SWITCHED TO OXYMASK AT 10L AND THEN 15L. PATIENT SATS CONTINUE TO BE LESS THAN 88%. REPOSITIONED PATIENT TO RIGHT SIDE, VAPOTHERM WITH 30L 60% Fi02. 02 SATS IMPROVED TO 90%. ENCOURAGED PATIENT TO REST IN THIS POSIITON TOLERATED. PATIENT AGREEABLE, CALL LIGHT IN REACH.
--- NOTE | 2020-05-22 21:30 | NUR ---
PATIENT PROVIDED WITH EVENING MEDICATIONS. PATIENT DENIES SOB OR PAIN. REPORTS NEED TO HAVE BM. ASSISTED PATIENT TO BSC. PATIENT TRANSFERED WITH MINIMAL DIFFICULTY. MEDIUM LIQUID BM NOTED. PATIENT REFUSED MIRALAX, SENNA PROVIDED. PATIENT RETURNED TO BED. ORAL TEMP WNL. PATIENT DESAT TO LOW 80'S WITH VAPOTHERM IN PLACE FOR TRANSFER. PATIENT TURNED TO LEFT SIDE. PATIENT CONTINUES TO HAVE LOW O2 SATS, INCREASED VAPOTHERM TO 35L 60% Fi02. PATIENT SLOWLY IMPROVED TO 89-91% O2 SAT. PICC LINE FLUSHED, RETURNS BLOOD AND HEPA-LOCKED. NEWMAN CARE DONE. GOOD URINE OUTPUT. PATIENT GIVEN CHAPSTICK AND WATER. DENIES WANTING TO TAKE DENTURES OUT TONIGHT. CALL LIGHT IN REACH. LIGHTS DIMMED, TV OFF PER REQUEST.
--- NOTE | 2020-05-22 22:30 | NUR ---
PATIENT REPORTED ABD CRAMPING AND REQUEST TO USE BSC. BUDGET DIRECTOR ASSISTED PATIENT. SMALL LIQUID BM NOTED. VAPOTHERM TITRATED TO 100% Fi02 40L FOR ACTIVITY. PATIENT MAINTAINED O2 SATS OF 88%. TITRATED BACK TO 30L 65% Fi02 WHEN IN BED.
--- NOTE | 2020-05-23 02:50 | NUR ---
PATIENT REPORTS STOMACH CRAMPING. ASSISTED PATIENT TO THE BSC. PATIENT PASSED LARGE AMOUNT OF GAS AND A SMALL MUCOID CLEAR BM. TITRATED VPOTHERM TO 30L 100% Fi02 FOR TRANSFER. PATIENT TOLERATED WELL. ASSISTED BACK TO BED, TURNED TO RIGHT SIDE. VAPOTHERM BACK TO 30L 65% Fi02. PATIENT MAINTAINED O2 SATS GREATER THAN 88%. PATIENT PROVIDED WITH SIPS OF WATER AND CHAP STICK. DENIED FURTHER NEEDS AT THIS TIME. CALL LIGHT IN REACH.
--- NOTE | 2020-05-23 06:00 | NUR ---
PATIENT APPEARED TO BE SLEEPING SOUNDLY. WOKE TO TOUCH. MORNING LABS DRAWN. PATIENT AGREEABLE TO PRONING, CO AVAILABLE TO RELEASE 1 WRIST RESTRAINT. PATIENT OUT OF BED AND NEW LINENS APPLIED. NEW RED AREA NOTED ON PATIENT'S COCCYX, BLANCHABLE. PATIENT INTO PRONE POSITION WITH RIGHT ARM BY WAIST AND LEFT ARM UP. PUSH BUTTON CALL LIGHT PLACED IN PATIENT'S HAND, PATIENT DEMONSTRATED ABILITY TO USE CALL LIGHT. PATIENT REPORTS BEING COMFORTABLE IN THIS POSITION. NEWMAN EMPTIED. PICC LINE FLUSHED WITH 20ML NS AFTER LAB DRAW.
--- NOTE | 2020-05-23 07:50 | NUR ---
PT UP TO SIT AT THE SIDE OF THE BED. O2 SATURATION IMPROVES QUICKLY PT NASAL CANULA HAD MIGRATED OUT OF NOSTRALS WHILE LAYING IN BED ON ABD. PT IS COOPERATIVE AND POLITE, ALERT AND ORIENTED X4. WITH REPOSITION PT DENIES PAIN, NAUSEA, AND SOB. PT TRANSFERED TO THE CHAIR WITH ONLY STANDBY ASSIST FOR CORD MANAGEMENT. VITALS ARE WNL. PT GIVEN SUPPLIES FOR ORAL CARE, AND IS ABLE TO DO IT INDEPENDENTLY. ALL LINENS AND PT GOWN CHANGED, SCANT DRAINAGE OF URINE FROM CATH WITH PRONING NOTED. PT INCONTINENT OF SMEAR OF STOOL WHILE SITTING AT BEDSIDE, MESFIN CARE DONE.
--- NOTE | 2020-05-23 08:14 | NUR ---
PT O2 TITRATED TO 30L/45% O2 SATS ARE 90-94%
--- NOTE | 2020-05-23 08:40 | NUR ---
PICC LINE SITE IS INTACT, NO REDNESS OR SWELLING, BLOOD RETURNS EASILY, FLUSHES EASILY. IV SITE IN LEFT FOREARM IS INTACT, NO SWELLING OR REDNESS NOTED, FLUSHES EASILY. PT DENIES PAIN AT EITHER SITE.
--- NOTE | 2020-05-23 08:46 | NUR ---
PT HAS BREAKFAST, IS SITTING UP IN THE CHAIR EATING INDEPENDNENTLY. VITALS WNL.
--- NOTE | 2020-05-23 09:18 | NUR ---
DR. COLINDRES IN ROOM TO SEE PT. PT ALERT AND ORIENTED X4, ABLE TO COMMUNICATE EASILY.
--- NOTE | 2020-05-23 10:15 | NUR ---
PT TAKES ALL PO MEDS EASILY. PICC FLUSHED, BLOOD RETURNS EASILY, HEP LOCKED SITE. PT BACK TO BED FROM CHAIR, AMBULATES EASILY WITH STAND BY ASSIST FOR CORD MANAGEMENT. PT HIGH FOWLERS IN BED. CORRECTIONAL RESITRAINTS IN PLACE X4 LIMBS, FLAT BATTERY LOADER CUFF STYLE, ASSESED FOR COMFORT AND SAFETY. SKIN IS INTACT, NO OBSERVABLE IRRITATION NOTED FROM RESTRAINTS. PT DENIES PAIN, NAUSEA, AND SOB. JAMES DUEÑAS AT THE BEDSIDE.
--- NOTE | 2020-05-23 12:10 | NUR ---
vapotherm settings titrated to 30L and 40% FIO2, pt O2 sats are 92-96%
--- NOTE | 2020-05-23 12:12 | NUR ---
PT REPOSTIONED TO LEFT SIDE FROM BACK, SUPPORTED WITH PILLOWS. PT ABLE TO TURN TO SIDE EASILY TO ASSIST WITH REPOSTION.
--- NOTE | 2020-05-23 12:15 | NUR ---
IV SITE IN LEFT FOREARM IS INTACT, NO REDNESS OR SWELLING NOTED, FLUSHES EASILY, PT DENIES PAIN WITH FLUSH. PICC SITE IS INTACT, HEP LOCKED AT THIS TIME. CORRECTIONAL RESTRAINTS IN PLACE, SKIN ASSESSED FOR INTEGRITY AND PT SAFETY. ALL SKIN IS INTACT. PT DENIES DISCOMFORT WITH RESTRAINTS. PT DENIES PAIN, NAUSEA, AND SOB IN GENERAL.
--- NOTE | 2020-05-23 14:21 | NUR ---
pt repostioned to back from left side, sitting up high fowlers. skin assessed for integrity, correctional restraints assesed for pt safety and comfort. pt able to expectorate thick red/brown sputum with cough. O2 titrated to 30L and 50% FIO2 for O2 sat below 87%.
--- NOTE | 2020-05-23 16:10 | NUR ---
PT UP FROM BED TO CHAIR WITH STANDBY ASSIST FOR CORD MANAGEMENT. PT REMAINS IN CORRECTIONAL RESTRAINTS X4 LIMBS, SKIN ASSESSED FOR INTEGRITY, AND IS INTACT. PT IV SITE IS INTACT, NO REDNESS OR SWELLING NOTED, FLUSHES EASILY. PICC LINE SITE IS INTACT, REMAINS HEP LOCKED. PT REPORTS SOME GENERALIZED BODY ACHES, HOWEVER TEMP IS WNL, 500 MG PO TYLENOL GIVEN. NEWMAN CATH CARES DONE, PT SELENE WELL.
--- NOTE | 2020-05-23 17:20 | NUR ---
DINNER TAKEN TO PT. HE IS SITTING UP IN THE CHAIR, ALERT AND ORIENTED X4, WATCHING TV. PT ABLE TO FEED SELF. PT REPORTS "I'M FEELING BETTER". VAPOTHERM REMAINS AT 30L AND 50% FIO2, PT SATURATIONS VARY FROM 87-97% WITH THIS AMOUNT OF FLOW.
--- NOTE | 2020-05-23 19:30 | NUR ---
SHIFT REPORT RECEIVED. PATIENT RESTING IN RECLINER. WATCHING TV. CALL LIGHT IN HAND. TOLERATING VAPOTHERM 30L 50% Fi02. O2 SATS 90-95%. RR 20.
--- NOTE | 2020-05-23 20:15 | NUR ---
PATIENT PROVIDED WITH EVENING MEDS. DENIES ANY CONCERNS. VS STABLE. EVENING CARES DONE, PATIENT ASSISTED INTO BED. TOLERATES ACTIVITY WITH MILD DYSPNEA. PATIENT INTO BED ONTO LEFT SIDE. REPORTS BEING COMFORTABLE. DM AREAS PADDED FOR COMFORT. SKIN UNDER RESTRAINTS WNL. NEWMAN CARE DONE. PICC LINE FLUSHED WELL WITH 20ML NS AND HEPA-LOCKED. RETURNED BLOOD EASILY. CALL LIGHT IN HAND. LIGHTS DIMMED.
--- NOTE | 2020-05-23 21:05 | NUR ---
PATIENT REPORTS CRAMPING AND ABD PAIN. ASSISTED UP TO BSC. PATIENT HAD MEDIUM CLEAR JELLY STOOL. PATIENT THEN FELT RELIEF. ASSISTED BACK INTO BED. O2 SAT 86% ON VAPOTHERM AT 30L 50%, PATIENT RECOVERED QUICKLY ONCE IN BED. CALL LIGHT IN HAND.
--- NOTE | 2020-05-24 01:00 | NUR ---
PATIENT APPEARED TO BE SLEEPING SOUNDLY. WOKE WHEN RN ENTERED ROOM. PATIENT REQUEST TO MOVE TO HIS RIGHT SIDE. ASSISTED PATIENT IN TURNING. PATIENT DID NOT TOLERATE WELL WITH O2 SATS IN THE LOW 80'S. INCREASED TO 60% Fi02. AFTER SEVERAL MINS PATIENT AGREED TO TRY PRONING AGAIN. PATIENT ABLE TO ROLL HIMSELF TO HIS STOMACH AND STAFF ASSISTED WITH PILLOW PLACEMENT. PATIENT REPORTS FEELING COMFORTABLE. O2 SATS IMPROVED TO MID 90'S. Fi02 BACK TO 50%. CALL LIGHT IN PATIENT'S HAND.
--- NOTE | 2020-05-24 02:45 | NUR ---
NC WAS DISLODGED AND PATIENT DESAT TO LOW 80'S. STAFF INTO ROOM. PATIENT REQUEST TO MOVE. PATIENT WOULD LIKE TO LAY FLAT ON HIS BACK. ASSISTED PATIENT WITH LINEN CHANGE DUE TO LEAKING OF NEWMAN. PATIENT DENIED OTHER NEEDS. ALLOWED PATIENT TO REST. CALL LIGHT IN HAND.
--- NOTE | 2020-05-24 04:12 | NUR ---
PATIENT DESAT TO 84-86% CONSISTENTLY WHILE LAYING ON HIS BACK. ASSISTED PATIENT TO HIS LEFT SIDE. AFTER SEVERAL MINS PATIENT'S SATS DID NOT IMPROVE. VAPOTHERM ADJUSTED TO 35L 60%. PATIENT IMPROVED TO 90% O2 SAT. PATIENT DENIED ANY NEEDS. CALL LIGHT IN HAND.
--- NOTE | 2020-05-24 05:50 | NUR ---
MORNING LABS DRAWN. PICC LINE FLUSHED AND RETURNED BLOOD EASILY. FLUSHED WITH 20 ML NS. PATIENT REPORTS BEING COMFORTABLE. DENIES NEEDS. O2 SATS >90%. TITRATED BACK TO 50% Fi02. NEWMAN EMPTIED. PATIENT'S CALL LIGHT IN REACH.
--- NOTE | 2020-05-24 07:41 | NUR ---
pt sleeping soundly in bed at this time, no observable distress noted, vapotherm in place, o2 sat is 90-94%
--- NOTE | 2020-05-24 08:58 | NUR ---
PT UP TO THE CHAIR, ABLE TO WASH FACE, PLACE DENTURES INDEPENDENLTY WHEN GIVEN SUPPLIES. PT DENIES PAIN, NAUSEA, AND SOB AT THIS TIME. PT SERVED BREAKFAST, ABLE TO FEED SELF. PT TRANSFERED TO CHAIR WITH STAND BY ASSIST ONLY FOR CORD MANAGEMENT. CORRECTIONAL RESTRAINTS ASSESSED FOR PT SAFETY AND COMFORT. SKIN IS INTACT.
--- NOTE | 2020-05-24 09:07 | NUR ---
HEPRIN LOCKED PICC LINE, SITE IS INTACT, BLOOD RETURN OBTAINED EASILY, FLUSHES EASILY.
--- NOTE | 2020-05-24 09:34 | NUR ---
resp therapy in room to do oxymask trial.
--- NOTE | 2020-05-24 09:45 | NUR ---
PT ABLE TO SELENE 8L O2 VIA OXYMASK, SATS ARE MAINTAINED AT OR ABOVE 90%. IN TO SEE PT.
--- NOTE | 2020-05-24 09:50 | NUR ---
TITRATED O2 TO 10L FLOW VIA OXYMASK FROM 8L DUE TO DESAT.
--- NOTE | 2020-05-24 10:36 | NUR ---
PT SITTING UPRIGHT IN CHAIR WITH TV ON AND EYES CLOSED.
--- NOTE | 2020-05-24 11:25 | NUR ---
TITRATED PT O2 DOWN TO 8L O2 VIA OXYMASK FROM 10L
--- NOTE | 2020-05-24 11:33 | NUR ---
PT CORRECTIONAL RESTRAINTS ASSESSED FOR PT SAFETY AND COMFORT, SKIN REMAINS INTACT. PT SELENE 8L O2 VIA OXYMASK WELL. PT SITTING UP IN CHAIR AND WISHES TO REMAIN THERE, ADDITIONAL PILLOW GIVEN FOR NECK SUPPORT. PT REMAINS ALERT AND ORIENTED X4, DENIES PAIN, NAUSEA, AND SOB. PT IS WATCHING TV AND HAS CALL LIGHT WITHIN REACH. PT DENIES ANY NEEDS AT THIS TIME.
--- NOTE | 2020-05-24 12:00 | NUR ---
PT BROUGHT LUNCH BY JAMES DUEÑAS.
--- NOTE | 2020-05-24 12:07 | NUR ---
PT DESATS TO 72% ON ROOM AIR WHILE EATING LUNCH. THEN PLACED BACK ON VAPOTHERM BY RESP THERAPY.
--- NOTE | 2020-05-24 13:10 | NUR ---
PT PLACED BACK ON OXYMASK AT 8L FLOW PER PT REQUEST, O2 SATS REMAIN AT OR ABOVE 90%
--- NOTE | 2020-05-24 13:10 | NUR ---
PT CORRECTIONAL RESTRAINTS ASSESSED FOR PT SAFETY AND COMFORT, ALL SKIN IS INTACT. PT BOOSTED UP IN THE CHAIR, ADDITIONAL PILLOW FOR SUPPORT BEHIND BACK AND NECK. PT DECLINED OFFER TO GET BACK TO BED. PICC SITE IS INTACT, NO REDNESS OR SWELLING NOTED, REMAINS HEP LOCKED AT THIS TIME. PT HAS CALL LIGHT WITHIN REACH. PT DENIES ANY NEEDS AT THIS TIME.
--- NOTE | 2020-05-24 14:00 | NUR ---
PT DESATS TO 82% ON OXYMASK AT 8L FLOW WHILE SLEEPING, PT PLACED BACK ON VAPOTHERM AT 35L AND 60%, O2 SATS BETWEEN 91-95%
--- NOTE | 2020-05-24 16:06 | NUR ---
PT BACK TO BED FROM THE CHAIR, AMBULATES WELL WITH STANDBY ASSIST FOR CORD MANAGEMENT. PT SKIN ASSESSED, CORRECTIONAL RESTRAINTS IN PLACE, ALL SKIN IS INTACT. PT GIVEN PARTIAL BED BATH, ABLE TO DO SOME WASHING WHEN GIVEN WASH CLOTHS. NEWMAN CATH CARES DONE, GOWN CHANGED.
--- NOTE | 2020-05-24 17:23 | NUR ---
TITRATED VAPOTHERM SETTINGS DOWN TO 30L AND 50%. PT SITTING UP IN BED TO EAT DINNER. PT DENIES NAUSEA, SOB, AND PAIN AT THIS TIME. CORRECTIONAL RESTRAINTS ASSESSED FOR PT SAFETY AND COMFORT, SKIN INTACT.
--- NOTE | 2020-05-24 17:30 | NUR ---
PT ABLE TO EAT 100% OF DINNER AND ENSURE DRINK.
--- NOTE | 2020-05-24 19:33 | NUR ---
PATIENT DESATING TO 80% ON VAPOTHERM AT 30L AND 50% ON VAPOTHERM LAYING IN BED WITH HOB ELEVTAED TO 45 DEGREES. PATIENT ASSISTED TO LAY ON HIS LEFT SIDE. TITRATED TO 35L 60% Fi02. PATIENT DID NOT IMPROVE AFTER SEVERAL MINS. PATIENT AGREEABLE TO PRONING AT THIS TIME. PATIENT ABLE TO GET HIMSELF IN PRONE POSITION WITH MINIMAL ASSISTANCE. AFTER SEVERAL MINS PATIENT'S O2 SATS IMPROVED TO 86-87%. VAPOTHERM TO 40L AND 80% Fi02. PATIENT ABLE TO RECOVER, O2 SATS >90%. ALLOWED PATIENT TO REST FOR 5 MINS, VS STABLE. TITRATED BACK TO 35L 50% Fi02. AFTER 20MINS O2 SATS 93%. RR REMAINED LESS THAN 24 DURING THIS EPISODE. PATIENT HAS CALL LIGHT IN HAND. AGREES TO AT LEAST 1 HOUR OF PRONING.
--- NOTE | 2020-05-24 20:15 | NUR ---
PATIENT UNABLE TO TOLERATE PRONE POSITION. ASSISTED TO LEFT SIDE. PATIENT ABLE TO MAINTAIN O2 SATS GREATER THAN 88% ON VAPOTHERM AT 35L 50% Fi02. EVENING MEDS PROVIDED. NEWMAN CARE DONE. PATIENT DENIES ANY CONCERNS AT THIS TIME. SKIN UNDER RESTRAINS WNL. VS STABLE. CALL LIGHT IN HAND. LIGHTS DIMMED AND TV OFF.
--- NOTE | 2020-05-24 21:00 | NUR ---
PATIENT REPORTS THE NEED TO HAVE BM. ASSISTED PATIENT UP TO BSC. PATIENT PASSED LARGE AMOUNT OF GAS AND HAD LARGE MUCOID CLEAR STOOL. PATIENT ASSISTED WITH MESFIN CARE AND BACK INTO BED. PATIENT ON VAPOTHERM AT 35L 100% FOR TRANSFER, DESAT TO HIGH 70'S WITH ACTIVITY. PATIENT RECOVERED AFTER SEVERAL MINS IN BED. TITRATED BACK TO 30L 60% Fi02. PATIENT HAVING FREQUENT COUGHING FITS AND DARK BROWN SPUTUM. WATER PROVIDED.
--- NOTE | 2020-05-25 00:30 | NUR ---
PATIENT SLEEPING SOUNDLY. WOKE EASILY TO VOICE. VS STABLE. PATIENT TOLERATING VAPOTHERM 35L 60% Fi02. PATIENT DENIES ANY NEEDS. CALL LIGHT IN REACH.
--- NOTE | 2020-05-25 04:00 | NUR ---
PATIENT DESAT TO 82% WHILE SLEEPING. STAFF ENTERED ROOM. PATIENT WAS ON ROOM AIR, NC HAD BEEN TOTALLY TAKEN OFF. PATIENT SLEEPING SOUNDLY. WOKE PATIENT AND REPLACED NC. VAPOTHERM AT 35L 50% Fi02. PATIENT QUICKLY IMPROVED O2 SATS TO GREATER THAN 90%. PATIENT DENIED ANY NEEDS AT THIS TIME. CALL LIGHT IN REACH.
--- NOTE | 2020-05-25 06:00 | NUR ---
PATIENT DISPLACED NC, DESAT TO 84%. STAFF INTO ROOM. ASSISTED PATIENT WITH NC. PATIENT REPOSITIONED TO RIGHT SIDE. NEWMAN EMPTIED. PATIENT DENIED ANY NEEDS. CALL LIGHT IN HAND.
--- NOTE | 2020-05-25 07:37 | NUR ---
PATIENT SHIFT REPORT RECIEVED FROM BIOLOGY LECTURER RN. PATIENT RESTING IN BED WITH 2 GAURDS STANDING AT THE DOOR. WILL CONTINUE TO CLOSELY MONITOR. PATIENT ON VAPOTHERM AT 35L AND 50% FIO2.
--- NOTE | 2020-05-25 08:30 | NUR ---
PATIENT SHIFT ASSESSMENT COMPLETED. PATIENT RESTING IN BED THIS AM. ASSISTED PATIENT UP TO THE CHAIR FOR BREAKFAST. PATIENT TOLERATED WELL BUT DID DESAT WITH ACTIVITY TO THE CHAIR. LEANA IN THE ROOM WITH THIS RN. PATIENTS STATES HE DOES GET SOB WITH ACTIVITY. PATIENT RESTING IN THE CHAIR EATING BREAKFAST. INCREASED VAPOTHERM D/T PATIENT COUGHING D/T SWOLLOWING HIS EGGS WRONG. THIS RN TITRATED VAPOTHERM BACK DOWN AFTER INCIDENT. WILL CONTINUE TO TRY AND TITRATE OXYGEN DOWN TOLETRATED. BEDDING CHANGED. WILL CONTINUE TO CLOSELY MONITOR.
--- NOTE | 2020-05-25 10:02 | NUR ---
PATIENT RESTING IN THE CHAIR AT THIS TIME. PATIENTS SPO2 95% ON 35L AND 80%. PATIENT HAD SOME DESATS THIS AM WITH MOVING TO THE CHAIR AND TOOK ABOUT 30 MINUTES FOR SPO2 TO RETURN TO MID 90'S. WILL TITRATE NEXT TIME THIS RN IN TO SEE PATIENT. NO OTHER NEEDS AT THIS TIME. WILL CONTINUE TO CLOSELY MONITOR.
--- NOTE | 2020-05-25 11:03 | NUR ---
MD COLINDRES IN TO SEE PATIENT. WILL HOLD OFF ON CPAP D/T ASPIRATION INCIDENT THIS AM. NO OTHER NEEDS AT THIS TIME. WILL CONTINUE TO ENCOURAGE INCENTIVE SPIROMETER AND AQAPELLA TREATMENTS. WILL ENCOURAGE PRONING PATIENT THROUGHOUT THE DAY TOLERATED.
--- NOTE | 2020-05-25 12:30 | NUR ---
PATIENT RESTING IN THE CHAIR AT THIS TIME. VITALS COMPELTED. ASSESSMENT DONE. UNABLE TO LISTEN TO BREATH SOUNDS D/T PAPR. GABBYS PRESENT AT THIS TIME. PATIENT IS UP IN THE CHAIR. SPOKE WITH PATIENT ABOUT GETTING BACK TO BED IN ABOUT AN HOUR TO PRONE. THIS WILL ALLOW PATIENT SLUNCH TO SETTLE PRIOR TO LAYING ON HIS BELLY. NO OTHER NEEDS. FRESH WATER AT THE BEDSIDE. WILL CONTINUE TO CLSOELY MONITOR
--- NOTE | 2020-05-25 13:15 | NUR ---
Report received, orders acknowledged. Patient sitting up in chair with two point restraints in place on wrists and ankles. Vapotherm in place with settings of 30L and 60% Fi02. SpO2 of 93%, RR of 18. Two correctional officers sitting outside of patient room. Call light within reach of patient.
--- NOTE | 2020-05-25 13:30 | NUR ---
REPORT GIVEN TO QUOC RICE. ALL QUESTIONS ANSWERED. QUOC RICE WILL RESUME CARE AT THIS TIME.
--- NOTE | 2020-05-25 14:25 | NUR ---
Patient sitting in chair watching tv. Vapotherm in place with settings of 30L and 60% Fi02, Sp02 in the mid-90's and RR in the low 20's. Patient reports SOB is "better" and "I'm only short of breath when moving around." POC discussed, patient agreeable to prone positioning. Patient up to bed with SBA, correctional case records supervisor in room at bedside and wrist/ankle restraints in place. IS and acapella used while patient sitting up at edge of bed, coughing and deep breathing encouraged. Patient desaturates to low 80% with movement and using IS/acapella. Vapotherm settings increased to 30L and 85% Fi02. Patient assisted into prone position with pillows under chest for comfort. Patient Sp02 increases to 97%, vapotherm settings returned to original settings of 30L and 60% Fi02. Santos catheter emptied of 550 mls of dilute urine. Patient denies further needs, call light within reach.
--- NOTE | 2020-05-25 15:19 | NUR ---
Patient sleeping in prone position with bed in reverse trendelenburg. Vapotherm settings at 30L and 60% Fi02, SpO2 of 98%, RR of 22. Four-point restraints in place on wrists and ankles, two correctional officers sitting outside of room. Call light within reach.
--- NOTE | 2020-05-25 16:09 | NUR ---
Patient sleeping in bed, laying on left side, respirations even and unlabored. Vapotherm settings at 30L and 60% Fi02, with an Sp02 ranging from 93-96%. RR of 18. Two correctional officers sitting outside of room, with restraints in place on wrists and ankles. Call light within reach.
--- NOTE | 2020-05-25 18:06 | NUR ---
Patient up to chair for dinner with 1PA. Vapotherm in place with settings at 30L and 60% Fi02, with an SpO2 in the mid-90's. Patient desaturates to 78% with movement, breathing becomes more labored. Vapotherm increased to 30L and 95%, patient Sp02 climbs to 95%. Patient uses IS and acapella, deep breathing and coughing as well. Sp02 increases to 97%, vapotherm decreased to original settings of 30L and 60% Fi02. Dinner delivered, water refreshed. Patient denies further needs. One geographic area intelligence officer in room at patient bedside. Four point restraints in place on wrists and ankles. Vital signs taken, assessment complete. Call light within reach.
--- NOTE | 2020-05-25 19:30 | NUR ---
SHIFT REPORT RECEIVED. PATIENT RESTING IN RECLINER. TOLERATING VAPOTHERM 30L 60% Fi02. O2 SAT 98%, RR 14. CALL LIGHT IN REACH.
--- NOTE | 2020-05-25 21:00 | NUR ---
DISCUSSED PATIENT'S UNUSUAL BM WITH . RAVEN ORDERED FOR THE MORNING.
--- NOTE | 2020-05-25 21:00 | NUR ---
[place] [facility] [place] LARGE CLEAR MUCOID BM NOTED. PATIENT HAS OCCATIONAL CRAMPING AND ABD PAIN. NO NAUSEA. ABD IS SOFT, BUT TENDER. PATIENT DENIED FEELING CONSTIPATED AND DENIED THAT THESE BM ARE HIS NORMAL. ASSISTED PATIENT INTO BED. PATIENT TURNED TO LEFT SIDE. VAPOTHERM AT 100% Fi02 FOR ACTIVITY. O2 SATS 88% WHEN PATIENT RETURNED TO BED. TITRATED TO 35L 50% Fi02. PATIENT MAINTAINED O2 SATS GREATER THAN 88%. NEWMAN CARE DONE. EVENING MEDS GIVEN. PICC RETURNED BLOOD, FLUSHED WITH 20 ML NS AND HEPA-LOCKED. EVENING CARES DONE. PATIENT DENIED ANY OTHER NEEDS. CALL LIGHT IN REACH.
--- NOTE | 2020-05-26 00:30 | NUR ---
PATIENT SLEEPING SOUNDLY. WOKE EASILY TO VOICE. DENIES ANY NEEDS. NEWMAN DRAINING CLEAR URINE. TOLERATING VAPOTHERM 35L 50%. RR 16. CALL LIGHT IN REACH.
--- NOTE | 2020-05-26 01:59 | NUR ---
VAPOTHERM WAS ALARMING, NEW SALINE BAG HUNG. VAPOTHERM HAD STOPPED FLOWING SINCE THAT SALINE WAS EMPTY, SO PT DESATURATED TO 79%. INCREASED FIO2 TO 90% FOR ABOUT A MINUTE AND THEN TITRATED IT DOWN TO 55%. CURRENTLY SPO2 IS 89%.
--- NOTE | 2020-05-26 05:08 | NUR ---
ASSESSMENT COMPLETED AT THIS TIME, LIMITED DUE TO PAPR PPE. PT SLEEPING, WOKE EASILY WHEN SPOKEN TO. DENIES PAIN. RESPIRATIONS EVEN AND UNLABORED, VAPOTHERM CONTINUES AT 35L @ 55%. HR SINUS EAMON PER MONITOR. PT DENIES NAUSEA, ABDOMEN MILDLY DISTENDED. NEWMAN PATENT, DRAINING YELLOW URINE. PICC DRESSING C/D/I, HEPARIN LOCKED BY PRIOR NURSE. CORRECTIONAL RESTRAINTS REMAIN IN PLACE X4 EXTREMITIES, CMS AND SKIN INTACT. PT DENIES REQUESTS OR COMPLAINTS AT THIS TIME. CORRECTIONAL OFFICERS WITHIN VIEW OF PT AT ALL TIMES.
--- NOTE | 2020-05-26 06:21 | NUR ---
PT CONTINUES TO REST COMFORTABLY, NO APPARENT DISTRESS, RESPIRATIONS EVEN AND UNLABORED. RR:18, SPO2:93%, HR:47. VAPOTHERM CONTINUES AT 35L @ 55%.
--- NOTE | 2020-05-26 08:17 | NUR ---
PATIENT EATING BREAKFAST AND DESATS WITH THIS ACTIVITY. ALSO HAD PULLED NASAL CANNULA OUT OF ONE NOSTRIL, SP02 DOWN TO 67%. FI02 INCREASED TO 80% WHILE PATIENT SLEEPING. CONTINUE TO MONITOR. 2 GUARDS REMAIN IN ROOM.
--- NOTE | 2020-05-26 09:19 | NUR ---
IN PATIENT'S ROOM FOR ASSESSMENT, MEDS, VITALS, LINEN CHANGE. PATIENT STATES HE IS FEELING BETTER OVERALL SINCE HIS ADMISSION. PT STATES HIS CHEST PRESSURE IS STILL PRESENT, BUT MORE MILD THAN BEFORE. PT REPORTS HAVING "BLACK" SPUTUM COMING UP, BUT HAVE YET TO SEE ANY TODAY. PATIENT TAKES MEDS WITHOUT DIFFICULTY. PLAN TO HAVE PATIENT INTO PRONE POSITION FOR 1.5-2 HOURS THIS AM, AN AGAIN THIS AFTERNOON. PT AGREEABLE TO THIS. PATIENT'S VAPOTHERM SETTINGS PER RT 15 L AND 100%, HE IS TRYING TO WEAN PATIENT OFF VAPOTHERM AND MOVE HIM ONLY OTHER HIGH FLOW OXYGEN TUBING. PATIENT THEN UP TO CHAIR AND BED LINEN CHANGED. 1 GUARD IN ROOM, 1 GUARD OUTSIDE ROOM. GUARD IN ROOM HELPFUL AND HELPING WITH APTIENT'S CARE BY ATTENDING TO HIS NEEDS AND HELPING THIS RN. CONTINUE TO MONITOR.
--- NOTE | 2020-05-26 09:32 | NUR ---
PATIENT HELPED INTO PRONE POSITION. PT MUCH STRONGER AND ABLE TO MOVE EASIER THAN LAST TIME THIS RN WORKED WITH THIS PATIENT. FI02 TURNED DOWN TO 80% WHILE PATIENT IN THIS POSITION. CALL LIGHT WITHIN REACH. VOLUME ON TV UP FOR PATIENT TO HEAR. CONTINUE TO MONITOR.
--- NOTE | 2020-05-26 10:58 | NUR ---
PATIENT OUT OF PRONE POSITION AND INTO CHAIR. PT WAS PRONED FOR 1.5 HOURS AND TOLERATED WELL. FI02 UP TO 100% WITH THIS MOVEMENT AND WILL WORK ON TURNING LITER FLOW DOWN NEXT. DISCUSSED WITH RT AND SWITCHED PATIENT OVER TO GREEN TUBING HIGH FLOW NASAL CANNULA AT THIS TIME AT 15 L. WILL CONTINUE TO MONITOR. LUNCH TO BE ORDERED FOR PATIENT.
--- NOTE | 2020-05-26 13:54 | NUR ---
PT IMPROVING-COVID POSITIVE. [employer] GUARDS STATIONED OUTSIDE RM. WILL FOLLOW ABLE
--- NOTE | 2020-05-26 15:37 | NUR ---
PATIENT SLEEPING ON HIS LEFT SIDE AT THIS TIME. SP02 IS 99-100% ON 13 L HIGH FLOW NASAL CANNULA. HR IN THE 50-60s SINUS. CONTINUE TO MONITOR.
--- NOTE | 2020-05-26 18:07 | NUR ---
PATIENT HELPED UP TO CHAIR AND EATING DINNER IN CHAIR. PT REMAINS ON 11 L HIGH FLOW AND TOLERATING THIS WELL. NUTRITIONAL DRINKS ADDED TO PATIENT'S TRAYS. DR. ELLSWORTH IN TO SEE PATIENT AROUND 1700. NO FURTHER ORDERS REC'D.
--- NOTE | 2020-05-26 20:45 | NUR ---
SHIFT REPORT RECEIVED FROM DWAYNE DESOUZA. ASSESSMENT COMPLETED, LIMITED DUE TO PAPR PPE. PT IS SITTING UP IN CHAIR, DENIES PAIN. REPORTS SOB WITH ACTIVITY, IS CURRENTLY ON 11L HIGH FLOW NASAL CANNULA. HR SINUS EAMON PER MONITOR, DENIES CHEST PAIN. DENIES NAUSEA, REPORTS MILD TENDERNESS TO ABDOMEN WITH PALPATION, PT REQUESTS TO HOLD STOOL SOFTENERS TONIGHT. SKIN GROSSLY INTACT, NO EDEMA NOTED, CMS INTACT. PICC DRESSING C/D/I, NO REDNESS OR SWELLING NOTED AT SITE, BLOOD RETURN PRESENT, FLUSHES WITHOUT RESISTANCE, HEPARIN LOCKED. NEWMAN PATENT, DRAINING FREELY, PALE YELLOW URINE, CATH CARE PROVIDED. CORRECTIONAL RESTRAINTS X4 EXTREMITIES PRESENT, CORRECTIONAL OFFICERS X2 PRESENT. PT ASSISTED FROM CHAIR TO BED, NOW LAYING ON LEFT SIDE. CALL LIGHT IN REACH, NO REQUESTS AT THIS TIME.
--- NOTE | 2020-05-26 22:57 | NUR ---
PT ASLEEP AT THIS TIME, NO APPARENT DISTRESS, RESPIRATIONS EVEN AND UNLABORED, 11L HIGH FLOW NC IN PLACE. RR:15, HR:47, SPO2:97%.
--- NOTE | 2020-05-27 | NUR ---
PT ASLEEP AT THIS TIME, NO APPARENT DISTRESS. 11L HIGH FLOW NC REMAINS IN PLACE. RESPIRATIONS EVEN AND UNLABORED. RR:14, HR:45, SPO2:98% WILL ALLOW FOR REST AND CONTINUE TO MONITOR.
--- NOTE | 2020-05-27 02:06 | NUR ---
PT CONTINUES TO SLEEP, NO APPARENT DISTRESS. RESPIRATIONS EVEN AND UNLABORED, 11L HIGH FLOW NC REMAINS IN PLACE. RR:17, HR:48, SPO2:93%.
--- NOTE | 2020-05-27 04:45 | NUR ---
ASSESSMENT COMPLETED, NO CHANGES FROM PREVIOUS. REMAINS ON 11L HIGH FLOW NC. NEWMAN PATENT, DRAINING FREELY. CORRECTIONAL RESTRAINTS X4 EXTREMITIES, SKIN AND CMS INTACT. BLOOD DRAWN FROM PICC FOR MORNING LABS, GOOD BLOOD RETURN, FLUSHES WITHOUT RESISTANCE, SALINE LOCKED. PICC DRESSING REMAINS C/D/I, NO SWELLING OR REDNESS NOTED AT SITE. PT DENIES COMPLAINTS OR REQUESTS, CALL LIGHT WITHIN REACH.
--- NOTE | 2020-05-27 06:25 | NUR ---
PT RESTING WITH EYES CLOSED, NO APPARENT DISTRESS. RESPIRATIONS EVEN AND UNLABORED. RR:13, HR: 63, SPO2:92% ON 11L HIGH FLOW NC. CORRECTIONAL OFFICERS REMAIN AT DOOR.
--- NOTE | 2020-05-27 08:58 | NUR ---
PATIENT UP TO CHAIR FOR BREAKFAST. TURNED UP TO 13 L WHILE EATING. WILL TURN BACK TO 11 L AFTER. PATIENT STATES HE IS FEELING GOOD, REPORTS NO WORSENING SHORTNESS OF BREATH. CHEST TIGHTNESS HAS NEARLY RESOLVED. NEWMAN DRAINING WELL. LINEN CHANGED. 1 GUARD IN ROOM WITH RN AT THIS TIME. PATIENT AGREES TO PRONE LATER THIS AM. EATS 100% OF HIS BREAKFAST WELL. CALL LIGHT WITHIN REACH. CONTINUE TO MONITOR.
--- NOTE | 2020-05-27 09:48 | NUR ---
PATIENT SITTING UP ON CHAIR AT THIS TIME. WILL HAVE PATIENT REST PRONED HERE SOON.
--- NOTE | 2020-05-27 10:25 | NUR ---
IN PATIENT'S ROOM TO HELP HIM SHAVE AND THEN HELP HIM BACK TO BED TO PRONE FOR A LITTLE WHILE. PATIENT ABLE TO SHAVE HIMSELF USING THE MIRROR ATTACHED TO THE TRAY TABLE. 1 GUARD IN ROOM DURING RN IN ROOM.
--- NOTE | 2020-05-27 10:34 | NUR ---
PATIENT INTO PRONE POSITION AT THIS TIME. PATIENT ABLE TO MOVE SELF INTO BED INTO THIS POSITION WITH MINIMAL HELP. SP02 NOW 97% ON 11 L AND TURNED DOWN TO 10L. WILL CONTINUE TO MONITOR.
--- NOTE | 2020-05-27 12:12 | NUR ---
IN PATIENT'S ROOM FOR ASSESSMENT AND VITALS. PT ROLLED OFF FROM SUPINE TO HIS BACK AND SP02 HOVERING AROUND 85-87% LIKE THIS. PATIENT NOW UP TO CHAIR AND USING IS AND ACAPELLA. HR UP TO 104 WITH ACTIVITY.
--- NOTE | 2020-05-27 12:24 | NUR ---
PATIENT DESATURATING WHILE THIS RN IN ROOM. INCREASED OXYGEN TO 13 L, THEN UP TO 15L. CURRENTLY SP02 IS 85-87%. 1 GUARD IN ROOM. PT'S LUNCH ALSO ARRIVES. PATIENT ASKS THIS RN, " AM I FIGHTING THE VIRUS?" DISCUSSED THIS WITH PATIENT THAT HE DOES HAVE COVID-19. PATIENT RESPONDED IN A WAY LIKE THIS WAS NEW INFORMATION TO HIM. WILL CONTINUE TO MONITOR CLOSELY.
--- NOTE | 2020-05-27 12:34 | NUR ---
RT CALLED AND UPDATED ON PATIENT STATUS.
--- NOTE | 2020-05-27 13:29 | NUR ---
DR. ELLSWORTH IN TO SEE PATIENT. NO ORDERS REC'D. PT NOW UP TO 97% ON THE 15 L. PT HAS BEEN COUGHING PRODUCTIVE SPUTUM UP. CONTINUE TO MONITOR.
--- NOTE | 2020-05-27 13:30 | NUR ---
Spoke with RN. Pt resides at [facility] and will return to their Covid Unit on discharge.
--- NOTE | 2020-05-27 13:46 | NUR ---
PT UNDER PRECAUTIONS, WILL VISIT IF ABLE. EOCI GUARDS PRESENT
--- NOTE | 2020-05-27 16:01 | NUR ---
PATIENT RESTING IN CHAIR AT THIS TIME. SP02 IS 98% ON 15 L. WILL WORK ON TITRATING THIS BACK DOWN ONCE THIS RN BACK IN ROOM. 2 GUARDS REMAIN OUTSIDE ROOM.
--- NOTE | 2020-05-27 18:15 | NUR ---
OXYGEN TURNED DOWN TO 12 L AT THIS TIME. PT REMAINS SITTING IN CHAIR AND FINISHED HIS DINNER. WILL CONTINUE TO MONITOR.
--- NOTE | 2020-05-27 18:27 | NUR ---
PATIENT REMAINS IN CHAIR AND WANTS TO STAY IN CHAIR AT THIS TIME. SP02 CURRENTLY 97%. CONTINUE TO MONITOR.
--- NOTE | 2020-05-27 19:34 | NUR ---
SHIFT REPORT RECEIVED. PATIENT SITTING IN RECLINER. CALL LIGHT IN REACH. O2 SAT 99% ON 2L HIGH FLOW O2. RR 16.
--- NOTE | 2020-05-27 21:00 | NUR ---
PATIENT PROVIDED WITH EVENING MEDS. PATIENT DENIES PAIN OR NAUSEA. NO SOB AT REST. REPORTS OCCATIONAL PRODUCTIVE COUGH. IS AND CPT USED. CO RELEASED WRIST RESTRAINTS 1 AT A TIME FOR ROM. PATIENT TOLERATED WELL. PATIENT HAD SMALL CLEAR MUCOID BM AND PASSED A GREAT DEAL OF GAS. PATIENT THEN WALKED AROUND THE 2 TWICE BEFORE FEELING SOB. PATIENT SAT AT EDGE OF BED. O2 SATS LOW 80'S ON 12L HIGH FLOW NC. PATIENT RECOVERED AFTER ABOUT 5MINS. EVENING CARES DONE. VS STABLE. PATIENT ASSISTED TO LAY ON LEFT SIDE. CALL LIGHT IN REACH. LIGHTS DIMMED AND TV PER REQUEST.
--- NOTE | 2020-05-28 00:30 | NUR ---
PATIENT SLEEPING SOUNDLY, WAKES EASILY WHEN RN ENTERS ROOM. TOLERATING 12L NC WHILE SLEEPING. TITRATED TO 10L. O2 SATS 94-97%. PATIENT DENIES ANY NEEDS. SIPS OF WATER PROVIDED. NEWMAN DRAINING CLEAR YELLOW URINE. VS STABLE. CALL LIGHT IN REACH.
--- NOTE | 2020-05-28 05:03 | NUR ---
PATIENT COUGHING AND TURNED TO LAY ON BACK. O2 SATS 86-88% ON 10L NC. PATIENT REPOSITIONED TO RIGHT SIDE. WATER PROVIDED. PATIENT DENIED FEELING SOB. TITRATED TO 12L NC. NEWMAN EMPTIED. PATIENT DENIED ANY NEEDS. CALL LIGHT IN REACH.
--- NOTE | 2020-05-28 07:30 | NUR ---
PATIENT SHIFT REPORT RECIVED FROM GOVERNMENT SERVICE EXECUTIVE RN. PATIENT RESTING IN BED AT THIS TIME. PATIENT ON 12L OF HIGH FLOW OXYGEN. PATIENT SPO2 94-100%. PATIENT HAS CALL LIGHT IN REACH. WILL CONTINUE TO CLOSELY MONITOR.
--- NOTE | 2020-05-28 09:55 | NUR ---
THIS RN IN TO DO AM ASSESSMENT. PATIENT WAS RESTIN IN BED. RT WAS IN AND ADJUSTED OXYGEN TO 10L NC. PATIENT SPO2 92-95%. ASSSITED PATIENT UP TO CHAIR PATIENT WALKED AROUND BED WITH OXYGEN ON AND SAT IN CHAIR. [employer] STAFF REMOVED RESTRAINT TO ALLOW PATIENT TO STRETCH ARMS ONE AT A TIME. PATIENT SPO2 MONITOR REAPPLIED AND UNABLE TO GET A GOOD WAVEFORM. RT BROUGHT DOWN A SPO2 MONITOR FOR PATIENTS NOSE. STILL UNABLE TO GET A GOOD WAVEFORM. APPLIED AN SPO2 MONITOR TO PATIENTS EAR AND HAD A GOOD WAVEFORM WITH READING IN THE 70'S. SWITCHED PATIENT TO VAPOTHERM AT 40L AND 100%. THIS RN IN THE ROOM AND WEANIGN PATIENT BACK DOWN SLOWLY. PATIENT REPORTED MINIMAL SOB NOT WORSE THAN IT HAS BEEN DURIBNG THIS INCIDENT. COLOR WAS GOOD. RR 20'S. BP 110/55. HR 95-105. UNABLE TO LISTEN TO PATIENTS BREATH SOUNDS D/T PAPR. PATIENT COPPERATIVE WITH STAFF. ALL BEDDING CHANGED ON PATIENTS BED, DENTURES IN, WASHCLOTH PROVVIDED FOR PATIENT TO WASH HIS FACE. GLASSESS CLEANED. FLOOR MOPED. PATIENT IS RESTING IN THE CHAIR AT THIS TIME WITH VAPOTHERM AT 25L AND 65%FIO2. WILL CONTINUE TO CLSOELY MONITOR.
--- NOTE | 2020-05-28 12:00 | NUR ---
PATIENT UP IN THE CHAIR. LUNCH AT THE BEDSIDE. PATIENT TOELRATING WELL. CONTINUE TO TITRATE VAPOTHERM DOWN TO 25L AND 60% FIO2. WILL TRANSITION PATIENT BACK TO HIGH FLOW NASAL CANNULA AFTER PATIENT IS FINISHED WITH LUNCH. NO OTHER NEEDS AT THIS TIME. PATIENT ASSESSMENT REMAINS UNCHANGED. WILL CONTINUE TO CLOSELY MONITOR.
--- NOTE | 2020-05-28 13:25 | NUR ---
NOT ABLE YET TO VISIT WITH PT BECAUSE OF PRECAUTIONS.
--- NOTE | 2020-05-28 13:30 | NUR ---
ASSISTED PATIENT BACK TO BED TO PRONE. PATIENT AGREEABLE TO PLAN OF CARE AND TOLERATED WELL. WAS ABLE TO TRANSITION PATIENT BACK TO THE GREEN HIGH FLOW NASAL CANNULA AT 11LPM. PATIENT TOLERATING WELL. ENCOURAGED PATIENT TO REST ON HIS BELLY FOR A COUPLE HOUR, BUT IF HE COULD NOT TOLERATE IT TO CALL THE STAFF AND WE WILL COME HELP HIM REPOSITION. NO OTHER NEEDS AT THIS TIME. NEWMAN EMPTIED. CALL LIGHT IN HAND.
--- NOTE | 2020-05-28 15:30 | NUR ---
REPOSITIONED PATIENT TO THIS BACK. PATIENT WAS ABLE TO TOELRATE PRONING FOR SEVERAL HOURS. PATIENT REMAINS ON 11LPM VIA GREEN HIGH FLOW NASAL CANNULA WITH SPO2 94-97%. WILL CONTINUE TO CLOSELY MONITOR AND TITRATE APPROPRIATE. CALL LIGHT IN REACH. WILL CONTINUE TO CLOSELY MONITOR.
--- NOTE | 2020-05-28 17:30 | NUR ---
THIS RN IN WITH GABBY AND UPDATED PATIENT ON PLAN OF CARE TO COLLECT SPUTUM SAMPLE AND START ON ABX. PATIENT UNABLE TO PROVIDE SAMPLE AT THIS TIME. LEFT A SPUTUM SAMPLE CUP AT THE BEDSIDE FOR PATIENT TO COLLECT SAMPLE IN WHEN HE CAN PROVIDE ONE. WILL CONTINUE TO CLOSELY MONITOR.
--- NOTE | 2020-05-28 18:00 | NUR ---
PATIENT FINISHED WITH HIS DINNER. PATIENT WAS ABLE TO COUGH UP A SPUTUM SAMPLE AT THSI TIME. WILL COLLECT AND SEND AND START PATIENT ON ABX. NO OTHER NEEDS AT THIS TIME. WILL CONTINUE TO CLOSELY MONITOR.
--- NOTE | 2020-05-28 19:08 | NUR ---
CALLED AND VERIFIED WITH MD ELLSWORTH WHICH LABS SHE WANTED. DELIVERED SPUTUM SAMPLE TO LAB AND INSTRUCTED THAT IT IS A COVID POSITIVE SAMPLE. REORDERED [facility]. PER HYDRO MECHANIC A SPUTUM CULTURE WILL INCULED A GRAM STAIN C AND S, AN AEROBIC/ANAEROBIC CULTURE. NO OTHER NEEDS AT THIS TIME. WILL CONTINUE TO CLOSELY MONITOR.
--- NOTE | 2020-05-28 19:29 | NUR ---
SHIFT REPORT RECEIVED. PATIENT RESTING IN BED. HOB ELEVATED TO [address], 13L. O2 SAY 95%.
--- NOTE | 2020-05-28 21:17 | NUR ---
PATIENT RESTING IN BED. DESAT ON 13L HIGH FLOW NC TO HIGH 70'S. PATIENT DENIES FEELING SOB. RR 18. NEW PULSE OX PLACED, GOOD WAVE FORM. O2 SAT 78%. PATIENT LAID FLAT, REPOSITIONED TO LEFT SIDE. TITRATED TO VAPOTHERM 35L AND 40% WITH MINIMAL IMPROVEMENT. UP TO 70% Fi02. PATIENT O2 SATS SLOWLY IMPROVED TO GREATER THAN 90%. RT CALLED. PATIENT TOLERATING VPOTHERM, TITRATED BACK TO 50% Fi02. PLAN OF CARE DISCUSSED WITH ARSEN THEODORE AND . WILL CONTINUE TO MONITOR PATIENT. DRAW BLOOD GAS IF RESPIRTORY STATUS DECLINES AND CALL MD.
--- NOTE | 2020-05-28 21:21 | NUR ---
PATIENT PROVIDED WITH EVENING MEDS. NEWMAN CARE DONE. EVENING CARES DONE WITH ASSISTANCE FROM [employer] STAFF. NO ROM DUE TO DESATURATIONS. PATIENT DENIES PAIN OR NAUSEA. ABD IS MILDLY DISTENDED BUT SOFT. NO BM. PICC LINE RETURNS BLOOD EASILY. FLUSHED AND HEPA-LOCKED. CALL LIGHT IN REACH. LIGHTS DIMMED PER REQUEST.
--- NOTE | 2020-05-28 22:30 | NUR ---
PATIENT CONITNUES TO DESAT TO LOW 80% ON VAPOTHERM AT 35L 50% Fi02. ABG DRAWN BY ARSEN THEODORE. THEN TITRATED VAPOTHERM TO 80% Fi02. PATIENT'S O2 SATS AVERAGE AROUND 90%. PATIENT APPEARS TIRED BUT DENIES FEELING SOB. PATIENT CONTINUES TO LAY ON HIS LEFT SIDE. DISCUSSED FINDINGS OF ABG WITH . ORDERS TO CONITNUE TREATMENT CURRENTLY AND INCREASE Fi02 NEEDED.
--- NOTE | 2020-05-28 23:21 | NUR ---
DISCUSSED PATIENT'S CONTINUED POOR O2 SATS WITH . ORDER FOR ONE TIME LASIX RECEIVED.
--- NOTE | 2020-05-28 23:53 | NUR ---
PATIENT PROVIDED WITH IV LASIX VIA PICC, PICC THEN FLUSHED AND HEPA-LOCKED. PATIENT DENIES FEELING ANY MORE SOB THAN NORMAL. ASSISTED PATIENT TO TURN ONTO HIS [facility] LEFT SIDE. VAPOTHERM TITRATED TO 35L 90% Fi02. [place] DRAINING FREELY. ORAL TEMP WNL. PATIENT DENIED ANY NEEDS. CALL LIGHT IN REACH.
--- NOTE | 2020-05-29 01:55 | NUR ---
PATIENT ON VAPOTHERM AT 35L 90% Fi02. DESAT TO LOW 80s. STAFF INTO ROOM. TITRATED TO 40L 100% Fi02. PATIENT REPORTS FEELING HOT AND IS CLAMMY. ORAL TEMP WNL. VS STABLE. DISCUSSED PATIENT'S HIGH O2 DEMANDS. PATIENT VERBALIZED UNDERSTANDING. WHEN ASKED ABOUT INTUBATION PATIENT AGREES THIS IS THE COURSE OF ACTION HE WOULD WANT. PATIENT VERBALIZED HIS UNDERSTANDING OF THE SITUATION. FRESH WATER PROVIDED PER REQUEST. CALL LIGHT IN REACH.
--- NOTE | 2020-05-29 04:15 | NUR ---
PATIENT MAINTAINING O2 SATS GREATER TAHN 95%. RR 20-25. VAPOTHERM 40L 100%. PATIENT REPORTS FEELING HOT AND APPEARS DIAPHORETIC. COOL WASH CLOTH PLACED ON FOREHEAD. ORAL TEMP WNL. TITRATED TO 80% Fi02 ON VAPOTHERM. PATIENT APPEARS TO BE TOLERATING WELL. NEWMAN EMPTIED. PATIENT HAD GOOD RESPONCE OF IV LASIX. PATIENT DENIED ANY FURTHER NEEDS. CALL LIGHT IN REACH.
--- NOTE | 2020-05-29 07:30 | NUR ---
PATIENT SHIFT REPORT RECIEVED FROM SAND DIGGER RN. PATIENT RESTING I NBED ON VAPOTHERM 35L AND 80% AT THIS TIME. CALL LIGHT IN REACH. PATIENT CALLED FOR ICE WATER. GABBY GOWNED UP AND INTO THE ROOM TO ASSIST. NO OTHER NEEDS AT THIS TIME. WILL CONTINUE TO CLSOELY MONITOR.
--- NOTE | 2020-05-29 08:00 | NUR ---
SPOKE WITH MD ABOUT PLAN OF CARE FOR PATIENT TODAY. PATIENT HAS GOTEN WORSE IN THE LAST DAY. WILL ENCOURAGE MORE PRONING TODAY AND START CPAP/BIPAP PATIENT CAN TOLERATE. SPUTUM SAMPLE SENT AND ABX STARTED. WILL GIVE MUCINEX TO HELP WITH PATIENTS COUGH. PATIENT MORE SYMPTOMATIC THROUGHT THE NIGHT ACCORDING TO GO CART MECHANIC STAFF. PATIENT WAS DIPHORETIC AND REPORT FEELING UNWELL, WHICH PATIENT HAS NOT COMPLAINED OF FOR MANY DAYS. WILL CONTINUE TO CLOSELY MONITOR.
--- NOTE | 2020-05-29 09:00 | NUR ---
THIS RN IN TO SEE PATIENT WITH GABBY AT THE SIDE. PATIENT ASSESSMENT COMPLETED. UNABLE TO LISTEN TO BREATH SOUNDS, BOWEL TONES, OR HEART TONES. PATIENT STATES "I FEEL WORSE THAN I HAVE". EDUCATED PATIENT HE HAS TAKEN SOME STEPS BACKWARDS AND ISNT DOING WELL TO THE PREVIOUS DAYS WITH HIS OXYGENATION. PATIENT DESATS WITH MINIMAL EXERTION. PATIENT STATES HE IS A LITTLE SOB. RR 20. HE CONTINUES TO HAVE COUGHING EPISODES PERIODICLY. PATIETNS PULSES ARE GOOD. MINIMAL TRACE EDEMA NOTED IN BLE THIS AM. ASSISTED PATIENT TO PRONE POSITION AND ENCOURAGED PATIENT TO STAY IN THIS POSITION FOR SEVERAL HOURS. PATIENT AGREEABLE TO PLAN OF CARE. UPDATED PATIENT THAT I WEOULD HAVE HIM DO THIS SEVERAL TIMES THROUGHOUT THE DAY LONG HE CAN TOLERATE. NO OTHER NEEDS AT THIS TIME. PATIENTS SPO2 IS 99% ON 35L AND 80% FIO2. WILL CONTINUE TO CLOSELY MONITOR.
--- NOTE | 2020-05-29 10:45 | NUR ---
THIS RN IN TO ASSIST PATIENT OUT OF PRONE POSITION. PATIENT REQUESTED TO BE DONE. PATIENT NOW RESTING ON HIS BACK EATING A LITTLE FOOD. PATIENT TOELRATED WELL. PATIENT SPO2 98% ON 35L AND 85% FIO2. INITIALLY AFTER PATIENT TURNED AND DID ROM WITH GARDS RELEASING HIS RESTRAINTS PATIENT SPO2 DIPPED TO THE LOW 80'S. REMINDED PATIENT TO BREATH THROUGH HIS NOSE WHILE HE DID ROM. PATIENTS SPO2 BACK UP TO THE 90'S. PATIENTS SPO2 DECREASES WITH VERY LITTLE ACTIVITY. NO OTHER NEEDS AT THIS TIME. WILL CONTINUE TO CLOSELY MONITOR. PATIENT BROUGHT UP QUESTIONS ABOUT INTABATION. EXPLAINED WHAT HAPPENS WITH INTABATION AND ANSWERED PATIETNS QUESTIONS LIKE "HOW FAR DOWN DOES IT GO". PATIENT SITTING THERE PONDERING. EDUCATED PATIENT HE HAS OPTIONS. HE DOES NOT HAVE TO GET INTABED EITHER AND EXPLAINED OTHER OPTIONS AVAILABLE IF HE CONTINUES TO GET WORSE. EXPLAINED SOME PATIENTS IN LIFE DECIDE TO BE A DNR/DNI OR COMFORT CARE. EXPLAINED A LITTLE WHAT THOSE OPTIONS CONSIST OF. PATIENT STATED "I WANT TO THINK ABOUT ALL OF THIS". ENCOURAGED PATIENT TO THINK ABOUT IT AND TO KNOW WE ARE NOT NEEDING TO INTABE PATIENT AT THIS TIME, BUT PATIENT KNOWS HE IS NOT DOING BETTER AT THIS TIME. ENCOURAGED PATIENT ABOUT HIS SPO2 AFTER PRONING AND WILL CONTINUE TO ENCOURAGE PRONING THROUGHOUT THE DAY. PATIENT RESPONDS REALLY WELL TO PRONGING. NO OTHER NEEDS AT THIS TIME. ENCOURAGED PATIENT TO ASK QUESTIONS IF HE COMES UP WITH ANY OTHERS. WILL CONTINUE TO CLOSELY MONITOR
--- NOTE | 2020-05-29 11:00 | NUR ---
Update from RN. Plan to return pt to [facility] when stabilizes.
--- NOTE | 2020-05-29 11:39 | NUR ---
PT IN PRECAUTIONS-ENTRY DRIVER OPERATOR EXPRESSED CONCERN FOR PT'S CONDITION TODAY. UNABLE TO VISIT, WILL BE AVAILABLE
--- NOTE | 2020-05-29 12:45 | NUR ---
SHIFT ASSESSMENT COMPLETED. NO CHANGES FROM PRIOR ASSESSMENT. PATIENT IS DOING ABOUT THE SAME THIS AM. LUNCH OFFERED. PATIENT HAS BEEN SLEEPING MOST OF THE DAY TODAY. WILL CON TINUE TO LET PATIETN REST DURING THIS TIME. NO OTHER NEEDS. CALL LIGHT IN REACH.
--- NOTE | 2020-05-29 14:59 | NUR ---
MD RAMOSCH IN TO SEE PATIENT. SEE NEW ORDERS. WILL CONTINUE TO ALLOW PATIENT TO REST AND HAVE PATIENT PRONE. WILL CONTINUE TO CLOSELY MONITOR.
--- NOTE | 2020-05-29 16:45 | NUR ---
ASSISTED PATIENT TO REPOSITION IN BED INTO PRONE POSITION. PATIENT TOELRATED WELL. PATIENT AGREEABLE TO TRYING TO STAY IN POSITION UNTIL 1800. VAPOTHERM AT 30L AND 75%. PATIENTS SPO2 98%. WILL CONTINUE TO CLOSELY MONITOR.
--- NOTE | 2020-05-29 18:05 | NUR ---
IN TO ASSIST PATIENT TO HIS BACK. PATIENT TOELRATED PRONING FOR APPROX 1 HOUR. PATIENT DID IS AND AQAPELLA VERY WELL. HAD TO REMIND PATIENT TO TAKE A BREAK AND BREATH THROUGH HIS NOSE SEVERAL TIMES BEFORE DOING ANOTHER ONE. PATIENT TOLERATED WEL. WILL CONTINUE TO CLOSELY MONITOR.
--- NOTE | 2020-05-29 19:00 | NUR ---
Report received, orders acknowledged. Patient laying in bed with vapotherm in place. Settings of 30L and 80% Fi02 with an SpO2 of 94%. Call light within reach.
--- NOTE | 2020-05-29 20:15 | NUR ---
Patient laying in bed with vapotherm in place. Settings at 30L and 80% with an SpO2 in the mid-90's. HOB elevated, patient sitting up in bed. Patient asked to take a few deep breaths and cough. Dry, harsh cough noted and patient desaturated to 70% on vapotherm. Settings titrated to 40L and 99% Fi02. Sp02 slowly climbs up to the upper 90's after several minutes. PM medications given, vital signs taken. Patient assisted into prone position in reverse trendelenburg. SpO2 remains in the upper 90's. Vapotherm titrated down to 30L and 80%, SpO2 remains in the mid-90's. Patient denies further needs, call light within reach.
--- NOTE | 2020-05-29 21:30 | NUR ---
Patient calls RN to room, unable to continue tolerating prone position. Vapotherm settings currently at 30L and 80% FiO2, with an SpO2 of 97%. RR of 20. Patient assisted to a left side laying position. Patient desaturated to mid-80's with movement - vapotherm settings increased to 30L and 90% Fi02. After several minutes, oxygen titrated down to 30L and 80% Fi02. SpO2 ranges from 94-97% in this position. Mucinex given to patient, along with several PM medications. Water refreshed. Patient denies SOB. Call light within reach.
--- NOTE | 2020-05-29 23:31 | NUR ---
Patient laying in bed on left side watching tv. Vapotherm settings at 30L and 80% Fi02 with an SpO2 of 92%. RR of 18, HR in the 80-90's. Call light within reach.
--- NOTE | 2020-05-30 00:10 | NUR ---
Patient repositioned self in bed, now laying on back watching tv. Vapotherm in place with settings at 30L and 80% Fi02. Sp02 ranging from 88-92% in this position, RR of 20. Vital signs taken, assessment complete. Importance of prone positioning explained to patient, patient agreeable to POC. Patient assisted to prone position, Sp02 increases to 98-100%. Bed in reverse trendelenburg. Warm blankets provided, sips of water given to patient. Denies further needs, call light within reach.
--- NOTE | 2020-05-30 01:45 | NUR ---
CALL LIGHT ON. pt REQUESTED TO BE TURNED "MY BACK HURTS SO THAT I JUST CAN'T LAY LIKE THIS ANY MORE." REPOSITIONED ON LEFT SIDE. VAPOTHERM IN PLACE SATS IN 90'S. NO FURTHER REQUESTS AT THIS TIME. CALL LIGHT WITHIN REACH.
--- NOTE | 2020-05-30 02:39 | NUR ---
Patient sleeping in bed on left side, respirations even and unlabored. Vapotherm settings at 30L and 80% Fi02 with an SpO2 of 95%. Four point restrictions in place, two correctional officers sitting outside of room. Call light within reach.
--- NOTE | 2020-05-30 03:53 | NUR ---
Patient laying on left side, respirations even and unlabored. Vapotherm settings at 30L and 80% Fi02 with an SpO2 of 98%. RR of 18. Four point restraints in place, two correctional officers sitting outside of room. Call light within reach.
--- NOTE | 2020-05-30 05:01 | NUR ---
Patient sleeping in bed, respirations even and unlabored. Patient laying in prone position in reverse trendelenburg. Vapotherm settings at 30L and 80% Fi02 with an SpO2 of 99%, RR of 20. Two point restraints in place on ankles, two correctional officers sitting outside of room. Call light within reach.
--- NOTE | 2020-05-30 07:30 | NUR ---
PATIENT SHIFT REPORT RECIEVED FROM GLOBAL LEAD RN. PATIENTRESTING IN BED WITH PILLOW SUPPORT AT THIS TIME. CALL LIGHT IN REACH. PATIENT ON VAPOTHERM ON 30L AND 80% FIO2. NO OTHER NEEDS AT THIS TIME. WILL CONTINUE TO CLOSELY MONITOR.
--- NOTE | 2020-05-30 09:15 | NUR ---
THIS RN IN TO ASSESS PATIENT. UNABLE TO LISTEN TO BREATH SOUNDS, BOWEL TONES, OR HEART TONES. PATIENTS PULSES ARE STRONG. PATIENT STATES HIS COUGHING HAS NOT BEEN BAD. PATIENT STATES "I FEEL BETTER TODAY THAN YESTERDAY". PATIENT REPORTS LESS SOB THAN THE PREVIOUS DAY. ASSISTED PATIENT INTO THE PRONE POSITION. PATIENT AGREEABLE TO PLAN OF CARE. WILL HAVE PATIENT PRONE FOR APPROX 1 HOUR AND THEN GET UP TO THE CHAIR FOR BREAKFAST. VITALS DONE. PATIENT HAS SOFT SHACKLES ON FEET ONLY AT THIS TIME. CMS INTACT. NEWMAN CATHETER PRESENT WITH CLEAR YELLOW URINE. WILL CONTINUE TO CLOSELY MONTIOR.
--- NOTE | 2020-05-30 10:15 | NUR ---
ASSISTED PATIENT TO THE BEDSIDE AND INSTRUCTED TO TAKE A FEW DEEP BREATHS THROUGH HIS NOSE. PATIENT TOLERATED WELL AND THEN ASSISTED TO THE CHAIR. PATIENT ON 30L AND 80% FIO2. PATIENTS SPO2 DROPPED TO 88 AND THEN WITHIN A FEW MIN WAS BACK TO THE LOW-MID 90'S. PATIENT DENIES SOB. BREAKFAST SET UP AT THE BEDSIDE. PATIENT DENEIS ANY OTHER NEEDS. WILL CONTINUE TO CLSOELY MONITOR.
--- NOTE | 2020-05-30 12:15 | NUR ---
PATIENT ASSISTED UP TO [facility] TO HAVE A BM. PATIENT TOLERATED STANING WELL AND SPO2 90'S WITH ACTIVITY. WILL CONTINUE TO CLOSELY MONITOR.
--- NOTE | 2020-05-30 12:30 | NUR ---
PATIENT ASSITED BACK TO CHAIR TO EAT HIS LUNCH FROM THE [place]. PATIENT TOLERATED WELL AND IS HOLDING HIS SPO2 WITH MOVEMENT. PATIENT IS DOING MUCH BETTER TODAY ON HIS OXYGENATION. LUNCH SETUP. MADE PATIENTS BED. PLAN TO PRONE PATIENT ABOUT AN HOUR AFTER HE IS DONE EATING. NO OTHER NEEDS AT THSI TIME. WILL CONTINUE TO CLOSELY MONITOR.
--- NOTE | 2020-05-30 14:20 | NUR ---
PATIENT BEDBATH COMPLETED. PATIENT TOELRATED WELL. NEW GOWN. FRESH LINEN ON BED. ASSISTED PATIENT TO THE BED AND LAID IN THE PRONE POSITION. PATIENT TOLERATED WELL. VAPOTHERM AT 30L AND 75% FIO2. CALL LIGHT IN REACH. ENCOURAGED PATIENT TO REST IN THIS POSITION FOR APPROX 1-2 HOURS. NO OTHER NEEDS AT THSI TIME. WILL CONTINUE TO CLOSELY MONITOR.
--- NOTE | 2020-05-30 16:07 | NUR ---
PATIENT REPOSITIONED HIMSELF FROM THE PRONE POSITION TO HIS BACK AND TOELRATED WELL. 2 GARDS IN TO REAPPLY HIS UPPER EXTREMITY RESTRAINTS. NEWMAN CATH CARE COMPLETED. PATIENT UP TO THE CHAIR AND TOELRATED WELL. PATIENTS SPO2 DESATS TO UPPER 80'S WITH ACTIVITY. PATIENT NOW RESTING IN THE CHAIR WITH BLANKET ON HIS LAP. NO OTHER NEEDS AT THIS TIME. WILL CONTINUE TO CLSOELY MONITOR.
--- NOTE | 2020-05-30 17:51 | NUR ---
IN TO GIVE PATIENT HIS DINNER. PATIENT DENIES ANY OTHER NEEDS. CALL LIGHT IN REACH. WILL TAKE PATIENT DOWN FOR A CT ONCE HE IS FINISHED EATING.
--- NOTE | 2020-05-30 18:09 | NUR ---
TOMMIE DANIELS TO UPDATE THAT PER CT PROTOCOL THEY WAIT 3 HOURS AFTER PATIENT EATS FOR CONTRAST RELATED SCANS. WILL TAKE PATIENT DOWN AROUND 2029.
--- NOTE | 2020-05-30 19:30 | NUR ---
Report received, orders acknowledged. Patient sitting up in chair watching tv. Vapotherm settings at 25L and 75% Fi02 with an SpO2 of 97%. Two correctional officers sitting outside of room, four point restraints in place on patient. CT called and plan is to bring patient to imaging at approximately 2130. Patient informed of POC and to remain NPO until after CT is complete. RT called and plan is to trial patient on 15L nonrebreather prior to heading to CT.
--- NOTE | 2020-05-30 20:30 | NUR ---
Patient sitting up in chair watching tv. Vapotherm settings at 25L and 75% Fi02 with an SpO2 in the upper 90's. Vital signs taken, assessment complete. PM medications given. Patient reports "I feel much better today!" Four point restraints in place with a court registry officer in the room. Patient transitioned to nonrebreather mask at 15L for trial run to assess SpO2 prior to transport to CT. Patient continuing to sat in the upper 90's on 15L. Initially reports SOB, patient encouraged to take deep breaths. RR ranging from 16-20 with SpO2 ranging from 97-99%. After several minutes, patient denies SOB. New IV site obtained. Patient denies further needs at this time, call kristi cloud.
--- NOTE | 2020-05-30 21:30 | NUR ---
Patient off floor to imaging for CT. Nonrebreather mask in place at 15L, patient SpO2 ranging from 90-93%. HR in the 80-90's, RR of 18. Four point restraints in place with two correctional officers accompanying nursing staff and patient to CT.
--- NOTE | 2020-05-30 22:15 | NUR ---
*Patient returned to room from imaging at approximately 2215* After patient transferred from CT stretcher to wheelchair, SpO2 dropped down to 75% on 15L nonrebreather. Patient coached to take deep breaths and focus on breathing. SpO2 slowly begins to climb. Nursing staff and two correctional officers return to unit with patient in wheelchair. Four point restraints in place on extremities. SpO2 ranges from 87-90% upon entering the CCU. Once back in room, patient transferred from wheelchair to chair with SBA, steady on feet. 15L nonrebreather still in place, with SpO2 in the low-90's. HR remains in the 80's during transport to and from CT, as well as once back in room. RR increased to mid-20's during transport to and from CT, begins decreasing to 18 once back in room. Vapotherm put on patient with settings at 30L and 80% FiO2, SpO2 at 98%. Warm blankets provided, water refreshed. Patient denies further needs, call light within reach.
--- NOTE | 2020-05-30 23:30 | NUR ---
Patient sitting up in chair watching tv. Vapotherm in place with settings of 30L and 80% FiO2 with an SpO2 in the upper 90's. Vital signs taken, assessment complete. Temp of 100.1, prn acetaminophen given. Mucinex given to patient. Patient ambulated to bed with 1PA SBA, steady on feet. Four point restraints in place with one aircraft electronics technical officer in the room. Patient assisted to prone position with pillows placed for comfort. Bed placed into reverse trendelenburg. Vapotherm settings decreased to 25L and 70% FiO2, SpO2 of 99% in prone position. RR ranging from 18-22, HR remains in the 80's. Warm blankets provided, patient denies further needs at this time. Call light within reach.
--- NOTE | 2020-05-31 00:05 | NUR ---
Patient sleeping in bed in prone position with the bed in reverse trendelenburg. Vapotherm in place with settings at 25L and 70% FiO2, SpO2 of 99%. RR of 22, HR in the low 80's. Call light within reach.
--- NOTE | 2020-05-31 01:30 | NUR ---
Patient sleeping in bed, laying on left side. Vapotherm in place with settings of 25L and 70% FiO2, SpO2 of 97%. RR of 20, HR in the 70's. Four point restraints in place, two correctional officers sitting outside of room. Call light within reach.
--- NOTE | 2020-05-31 03:20 | NUR ---
Patient sleeping in bed on left side, vapotherm settings at 25L and 70% FiO2 with an SpO2 in the mid-90's. Vital signs taken, assessment complete. Patient assisted to prone position with the bed in reverse trendelenburg. SpO2 increases to 99% in this position. Patient denies further needs at this time, call light within reach.
--- NOTE | 2020-05-31 05:30 | NUR ---
Patient repositioned in bed, now laying on left side. Vapotherm settings at 25L and 70% FiO2 with an SpO2 of 95%. Patient sleeping, respirations even and unlabored. Four point restraints in place, two correctional officers sitting outside of room. Call light within reach.
--- NOTE | 2020-05-31 06:32 | NUR ---
Patient sleeping in bed on left side, respirations even and unlabored. Vapotherm settings at 25L and 70% FiO2 with an SpO2 of 98%. RR of 18, HR in the 60's. Four point restraints in place, two correctional officers sitting outside of room. Call light within reach.
--- NOTE | 2020-05-31 07:30 | NUR ---
PATIENT SHIFT REPORT RECIEVED FROM RETAIL ASSISTANT RN. PATIENT RESTING IN BED A THIS TIME. WILL CONTINUE TO CLOSELY MONTIOR.
--- NOTE | 2020-05-31 08:30 | NUR ---
PATIENT ASSISTED INTO PRONE POSITION. PILLOWS POSTIONED FOR COMFORT. PATIENT IS STILL SLEEPY THIS MORNING. NO OTHER NEEDS AT THIS TIME. WILL CONTINUE TO CLOSELY.
--- NOTE | 2020-05-31 10:00 | NUR ---
PATIENT ASSISTED UP TO THE CHAIR AND BREAKFAST AT THE BEDSIDE. ASSESSMENT COMPELTED. UNABLE TO LISTEN TO BREATH SOUNDS, HEART TONES, AND BOWEL TONES. PATIENT DESATS INTO THE LOW 80'S UPPER 70'S TODAY WITH ANY MOVEMENT. PATIENT NOW RESTIN IN THE CHAIR ON VAPOTHERM AT 25L AND 65% FIO2. PATIENT WORKING ON HIS BREAKFAST. PATIENTS PULSES ARE STRONG. RESTRAINTS INTACT. CMS INTACT. BEDDING CHANGED. WASH CLOTH PROVIDED. CALL LIGHT INREACH. WILL CONTINUE TO CLOSELY MONITOR.
--- NOTE | 2020-05-31 12:30 | NUR ---
PATIENT ASSISTED UP TO GET BACK TO BED. PATIENT NOW PRONING AT THIS TIME. EDUCATED HE COULD TURN ON HIS SIDE WHEN HE IS READY TO REPOSITION.PATIENT TOLERATED WELL. WILL ALLOW PATIENT TO REST AT THIS TIME. PATIENT ASSESEMENT UNCHANGED FROM PREVIOUS ASSESSMENT. WILL CONTINUE TO CLOSELY MONITOR.
--- NOTE | 2020-05-31 13:45 | NUR ---
PATIENT REPOSITIONED HIMSELF IN BED AND TOLERATED WELL. MOVED PILLOWS TO HELP PATIENT GET MORE COMFORTABLE. WILL CONTINUE TO CLOSELY MONITOR.
--- NOTE | 2020-05-31 15:45 | NUR ---
PATIENT RESTING IN BED AT THIS TIME. PATIENT DENEIS ANY NEEDS. WILL CONTINUE TO CLOSELY MONITOR.
--- NOTE | 2020-05-31 18:10 | NUR ---
GABBY IN TO GIVE PATIENT HIS DINNER. NO OTHER ENEDS AT THIS TIME. WILL CONTINUE TO CLOSELY MONITOR. VAPOTHERM 25L AND 70% FIO2. WILL CONTINUE TO CLOSELY MONITOR.
--- NOTE | 2020-05-31 19:30 | NUR ---
RECEIVED REPORT FROM [facility]. pt RESTING IN BED WITH EYES CLOSED, RESPIRATIONS REGULAR. VAPOTHERM IN PLACE. GUARDS JUST OUTSIDE THE DOOR.
--- NOTE | 2020-05-31 20:30 | NUR ---
ROUNDED ON pt. SITTING IN BED WITH EYES CLOSED, RESPIRATIONS REGULAR. CALL LIGHT WITHIN REACH.
--- NOTE | 2020-05-31 22:00 | NUR ---
IN TO DO ASSESSMENT AND MEDICATIONS. pt SITTING IN BED. DISCUSSED PLAN FOR REPOSITIONING DURING THE SHIFT. pt AGREEABLE TO PLAN. ASSESSMENT DONE. NEWMAN CARE DONE. MEDICATIONS GIVEN (SEE MAR). ASSISTED pt TO PRONE POSITION. WHILE pt WAS MOVING HE'S SAT DROPPED, INCREASED VAPO THERM TO 40L/100% WHILE pt MOVED AND RECOVERED. TITRATED TO 25L/70% WITH pt MAINTAINING SATS >90. CALL LIGHT WITHIN REACH.
--- NOTE | 2020-05-31 23:00 | NUR ---
pt NOT MAINTAINING SATS >90%. INCREASED VAPOTHERM TO 30L/80%.
--- NOTE | 2020-06-01 01:10 | NUR ---
IN TO DO ASSESSMENT. pt RESTING ON LEFT SIDE. ASSISTED TO MOVE TO RIGHT SIDE. O2 SAT IMPROVED AFTER REPOSITIONING. TITRATED VAPOTHERM TO 25L/75%. ASSESSMENT DONE. NEWMAN EMPTIED. CALL LIGHT WITHIN REACH.
--- NOTE | 2020-06-01 02:30 | NUR ---
ROUNDED ON pt. RESTING ON RIGHT SIDE, EYES CLOSED, RESPIRATIONS REGULAR. CALL LIGHT WITHIN REACH.
--- NOTE | 2020-06-01 04:00 | NUR ---
ROUNDED ON pt. RESTING ON RIGHT SIDE. O2 SAT 93%.
--- NOTE | 2020-06-01 05:30 | NUR ---
IN TO DO ASSESSMENT. pt RESTING MOSTLY ON BACK. WOKE TO VOICE. VITALS DONE. LABS DRAWN. ASSESSMENT DONE. pt DESATS WITH COUGHING AND TURNING TO LEFT SIDE. INCREASED O2 VIA VAPOTHERM UNTIL pt RECOVERED, VAPOTHERM SETTINGS 25L/75%. pt RESTING ON LEFT SIDE. CALL LIGHT WITHIN REACH. FRESH WATER PROVIDED. NO FURTHER REQUESTS AT THIS TIME. CALL LIGHT WITHIN REACH.
--- NOTE | 2020-06-01 06:40 | NUR ---
ROUNDED ON pt. RESTING ON LEFT SIDE. O2 SAT 95%. CALL LIGHT WITHIN REACH.
--- NOTE | 2020-06-01 08:40 | NUR ---
pt up from bed ambulated to chiar with stand by assist. pt denies pain, nausea, and sob at this time. correctional restraints in place, skin assessed for safety and comfort. pt vitals are wnl at this time. breakfast delivered.
--- NOTE | 2020-06-01 08:45 | NUR ---
picc line site is intact, no redness or swelling noted, blood return obtained easily, flushes easily. iv site in left forearm is intact, pt denies pain at site, flushes easily.
--- NOTE | 2020-06-01 09:06 | NUR ---
PT TITRATED TO 40L/80% ON VAPOTHERM FOR EATING AND ACTIVITY.
--- NOTE | 2020-06-01 10:30 | NUR ---
PT ARMS RELEASED FROM [facility] CORRECTIONAL RESTRAINTS AND BELLY BAND REMOVED TO AID IN PRONING POSITION. PER MD ORDER.
--- NOTE | 2020-06-01 10:44 | NUR ---
PT REPOSITIONED TO PRONE IN THE BED FROM SITTING UP IN THE CHAIR. O2 TITRATED DOWN TO 35L/50%, O2 SAT IS 95%
--- NOTE | 2020-06-01 10:50 | NUR ---
PT O2 TITRATED DOWN TO 30L/45% WHILE PRONING. O2 SAT IS 93%
--- NOTE | 2020-06-01 11:50 | NUR ---
pt repositioned up to high fowlers to take a break from proning. o2 titrated to 35L/50% fio2.
--- NOTE | 2020-06-01 11:57 | NUR ---
PT O2 TITRATED UP TO 38L/65% DURING MEAL
--- NOTE | 2020-06-01 13:00 | NUR ---
PT UP TO CHAIR FROM PRONING IN BED. PT ABLE TO AMBULATED WITH STAND BY ASSIST. PICC LINE AND IV SITE IN RT FOREARM ARE INTACT, NO REDNESS OR SWELLING NOTED, PICC SITE IS HEP LOCKED, IV SITE FLUSHES EASILY. PT DENIES PAIN, NAUSEA, AND SOB AT THIS TIME. PT AGREABLE TO PRONING AGAIN AT 1500. CORRECTIONAL RESTRAINS ARE ON ONLY BILAT ANKLES, ALL SKIN ASSESSED FOR PT SAFETY AND COMFORT. SKIN IS INTACT.
--- NOTE | 2020-06-01 13:15 | NUR ---
PT O2 TITRATED UP TO 32L/50% FROM 30L/45% DUE TO DESAT TO 86%.
--- NOTE | 2020-06-01 13:25 | NUR ---
PT PRONING IN BED. CALL LIGHT IS WITHIN REACH. VAPOTHERM SET TO 30L/50%
--- NOTE | 2020-06-01 14:16 | NUR ---
[facility] GUARDS OUTSIDE PT'S DOOR. PRECAUTIONS STILL IN EFFECT
--- NOTE | 2020-06-01 15:15 | NUR ---
FULL BEDBATH COMPLETED, GOWN CHANGED, NEWMAN CATH CARES DONE, SHAMPOOED PT HAIR. PT ABLE TO ASSIST WITH WASHING SELF WHEN PROVIDED WITH WASH CLOTHS. SKIN IS INTACT. VITALS ARE WNL.
--- NOTE | 2020-06-01 15:25 | NUR ---
PT BACK TO BED TO PRONE POSITION, VAPOTHERM SET TO 30L/50%, CALL LIGHT IS WITHIN REACH.
--- NOTE | 2020-06-01 16:50 | NUR ---
Update from RN. Condition unchanged.
--- NOTE | 2020-06-01 17:15 | NUR ---
PT UP TO CHAIR FROM PRONING POSITION. PT REPORTS FATIGUE FROM PRONING POSITION. DINNER SERVED TO PT. O2 TITRATED UP TO 35L/80% FOR DESAT WHILE EATING.
--- NOTE | 2020-06-01 18:45 | NUR ---
PT VAPOTHERM TITRATED DOWN TO 30L/55% DUE TO 100% O2 SAT.
--- NOTE | 2020-06-01 22:00 | NUR ---
PATIENT SITTING UP IN RECLINER. DENIES ANY CONCERNS. O2 SAT 92% ON 30L 50% Fi02 VIA VAPOTHERM. PATIENT PROVIDED WITH EVENING MEDICATIONS AND STARTED TO COUGH. RECOVERED AFTER 2-3 MINS. PATIENT UP TO [facility] [place], HAD LARGE BROWN FORMED BM. PATIENT DESAT TO THE HIGH 70'S ON VAPOTHERM AT 40L 100% Fi02. ENCOURAGED TO PRONE, PATIENT AGREEABLE FOR 1 HOUR AT LEAST. PATIENT INDEPENDEDNTLY LAID PRONE AND LINES POSITIONED FOR COMFORT. TITRATED BACK TO 35L 60% Fi02. O2 SATS IMPROVED TO GREATER THAN 90%. NEWMAN DRAINING CLEAR DILUTE URINE. PATIENT REPORTS BEING COMFORTABLE. CALL LIGHT IN REACH. GLASSES REMOVED PER REQUEST. DENTURES INTO CUP AT BEDSIDE.
--- NOTE | 2020-06-01 23:37 | NUR ---
PATIENT PRONED FOR ABOUT AN HOUR WITHOUT CALLING. O2 SATS 95% ON 35L 60% Fi02 VAPOTHERM. PATIENT MOVED IN HIS LEFT SIDE INDEPENDENTLY. ASSISTED WITH REPOSIITONING WIRES. PATIENT DESATS WITH THIS MINIMAL ACTIVITY. TITRATED TO 40L 80% Fi02. PATIENT RECOVERED AFTER SEVERAL MINS. PATIENT DENIED ANY FURTHER NEEDS. CALL LIGHT IN REACH.
--- NOTE | 2020-06-02 00:35 | NUR ---
PATIENT CALLED FOR WARM BLANKET. PATIENT TOLERATING VAPOTHERM AT 40L 80% Fi02. DISCUSSED WITH RT. TITRATED TO 35L 80% Fi02. PATIENT DENIED ANY OTHER NEEDS. CALL LIGHT IN REACH.
--- NOTE | 2020-06-02 02:30 | NUR ---
PATIENT REQUESTED A WARM BLANKET. PATIENT VS STABLE. TOLERATING VAPOTHERM, TITRATED TO 35L 80% Fi02 AFTER DISCUSSION WITH RT. PATIENT DENIED ANY FURTHER NEEDS. CALL LIGHT IN REACH.
--- NOTE | 2020-06-02 05:00 | NUR ---
PATIENT APPEARED TO BE SLEEPING SOUNDLY. VAPOTHERM TITRATED TO 35L 70% Fi02. PATIENT REPORTS FEELING WELL THIS MORNING. CONTINUES TO HAVE A LOOSE COUGH. NEWMAN EMPTIED. PATIENT DENIED ANY NEEDS. CALL LIGHT IN REACH.
--- NOTE | 2020-06-02 07:30 | NUR ---
REPORT RECIEVED FROM DWAYNE JEAN. PT RESTING IN BED VAPOTHERM IN PLACE AT 35LPM AND 70% FIO2. O2 SATRUATION AT 94%. PT RESTING WITH EYES CLOSED. OFFICERS AT BEDSIDE. BED RAILS UP. CALL LIGHT WITHIN REACH.
--- NOTE | 2020-06-02 08:30 | NUR ---
THIS RN TO ROOM FOR MORNING ASSESSMENT AND MEDICATION. PT RESTING ON LEFT SIDE WITH EYES CLOSED. PT AWAKENS TO MOVEMENT IN ROOM. PT REPORTS HE SLEPT WELL AND DOZES OFF WHEN ACTION IN ROOM IS QUIET. VITAL SIGNS TAKEN. ASSESSMENT DONE. EDEMA NOTED TO LEFT LOWER LEG. PT DENIES PAIN IN LEG. CMS INTACT. RESTRAINTS IN PLACE PER OFFICERS ON LOWER EXREMITIES. 2 FINGERS ABLE TO BE PLACED BETWEEN SKIN AND RESTRAINTS. ABDOMEN SOFT. NEWMAN CATHETER DRAINING TO GRAVITY. 1 PERSON ASSIST UP TO CHAIR. PT DESATURATES WITH ACTIVTY NOW TO 70%. VAPOTHERM INCREASED TO 100% AND 35LPM FOR ACTIVITY. RT CALLED TO BEDSIDE. RT, MICHELLE, STATES LUNG SOUNDS ARE CLEAR TO DEMINISHED. MINIMAL WORK OF BREATHING NOTED WITH SOME ABDOMINAL MUSCLE USE. PT REPORTS FEELING LIKE IS BREATHING IS "A LITTLE HARD." WITH VAPO THERM INCREASED SETTINGS PT RETURNS TO 95% O2 SATURATION. VAPO THERM SETTINGS REMAIN AT 100% AND 40LPM WHILE PT IS UP TO CHAIR AND EATING. MEDICATIONS GIVEN. PICC LINE ASSESSED, BRISK BLOOD RETURN NOTED. PICC LINE HEPARIN LOCKED AT THIS TIME. IV TO LEFT WRIST DC'D IT IS NO LONGER NEEDED. DENTURES CLEANED AND IN PLACE FOR BREAKFAST. CORNET AND I.S. USE DEMONSRATED REACHING 1000ML ON I.S. PT EATING BREAKFAST. THIS RN REMAINS AT BEDSIDE. OFFICER AT BEDSIDE.
--- NOTE | 2020-06-02 08:54 | NUR ---
Update from Rn, pt's condition is unchanged. Later spoke with Lindy from [facility]. Discussed pt's condition and their high level of care and their covid unit. She states [facility] do not have a higher level of care program. Their infirmsan antonio can provide antibiotics with a picc line and 02 at 10 l per a wall unit. Their covid unit is the same. They do not have bipap or vapotherm units. Lindy reminded this RN, if pt returns and needs IV antibiotics he will need a PICC placed. Ophelia, area operations manager, updated as she had questions regarding pt's returning to the covid unit.
--- NOTE | 2020-06-02 09:22 | NUR ---
PT FINISHED WITH BREAKFAST. PT REMAINS UP TO CHAIR. VAPOTHERM WEANED TO 35LPM AND 70%. PT MAINTAINING OXYGEN SATURATION ABOVE 92%. PT WATCHING TV. I/Os RECODRDED. NO ADDITIONAL REQUESTS OR COMPLAINTS. CALL LIGHT WITHIN REACH.
--- NOTE | 2020-06-02 09:50 | NUR ---
REGARDING PT ADVOCACY, END OF LIFE DECISIONS, AND POSSIBLE ESCALATION OF CARES THIS RN CONTACTS [facility] TO SPEAK WITH MRS. PEÑA. CALL ROUTED TO ESTELA AT [facility] WHO STATES THAT THESE DECISIONS AND SITUATIONS ARE TYPICALLY BROUGHT TO THE HOSPITAL ETHICS BOARD. PT HAS NO NEXT OF KIN, POLST OR ADVANCE DIRECTIVE ON FILE. MD, RN TEAM, AND MAJOR CASE DETECTIVE UPDATED.
--- NOTE | 2020-06-02 11:20 | NUR ---
PT DOZING IN CHAIR. THIS RN TO ROOM TO HAVE PT PRONE BEFORE LUNCH. 1 PERSON ASSIST BACK TO BED AND INTO PRONE POSIITON. O2 REMAINS ABOVE 92% ON VAPOTHERM AT 35LPM AND 70%FIO2. PT REPORTS FEELING COMFORTABLE IN PRONE POSITION. WARM BLANKETS PROVIDED. CALL LIGHT WITHIN REACH.
--- NOTE | 2020-06-02 12:10 | NUR ---
PT CALL LIGHT ON. PT STATES HE IS DONE PRONING. THIS RN TO ROOM. ASSESSMENT DONE. PT STATES THE HARDEST PART ABOUT PRONING FOR HIM IS THAT IT MAKES HIS NECK SORE. PT UP WITH 1 PERSON ASSIST TO CHAIR FOR LUNCH. ASSESSMENT DONE. OLD SKIN ABRASION TO LOWER EXTREMITIES HEALING AND NOW ONLY REDDENED SKIN. EDEMA CONTINUES TO LEFT LOWER EXTREMITY. UNABLE TO ASCULTATE LUNG SOUNDS DUE TO PAPAR UNIT IN PLACE. PT REQUIRES INCREASE IN OXYGEN WITH ACTIVITY ADN EATING. PT INCRASED TO 90%FIO2 AND 40L FOR ACTIVITY AND EATING TO MAINTAIN OXYGEN SATURATION ABOVE 92%. PT DENIES PAIN AND NAUSEA. AFTER EATING PT WEANED BACK TO 70% FIO2 AND 35LPM. PT TOLEARTING WELL WITH O2 SATURATIONS ABOVE 92%. PT REMAIN UP TO CHAIR. I.S. AND CORNET USED. PT REACHES 1250ML ON I.S. NO ADDITIONAL REQUESTS OR COMPLAINTS AT THIS TIME. CALL LIGHT WITHIN REACH.
--- NOTE | 2020-06-02 13:52 | NUR ---
CHECKING ON PT-RN JUNE AND JAMES SWEENEY, TO ENTER RM AND CARE FOR PT. WILL CHECK AGAIN
--- NOTE | 2020-06-02 13:55 | NUR ---
THIS RN TO ROOM TO CHECK ON PT. PT BACK TO BED WITH 1 PERSON ASSIST. PT DENIES PAIN AND NAUSEA. O2 REMAINS ABOVE 92% WITH VAPOTERM SETTINGS OF 35LPM AND 70%. PT POSITIONED TO LEFT SIDE WITH PILLOWS. WARM BLANKETS PROVIDED. PT DENIES ADDITIONAL REQUESTS OR COMPLAINTS. CALL LIGHT WITHIN REACH. BED RAILS UP.
--- NOTE | 2020-06-02 14:32 | NUR ---
PT HERE FOR COVID+ RELATED PNEUMONIA. PT UP TO CHAIR THIS SHIFT AND REPOSITIONED TO PRONE, LEFT AND RIGHT SIDES WITH 1 PERSON ASSIST FOR MANAGMENT OF TUBES AND LINES. PT TOLERATING REGULAR DIET WITH GOOD APPITTIES. PT REMAINS ON VAPOTHERM AT 35LPM AND 70% WHILE RESTING. PT REQUIRES ADDITIONAL OXYGEN UP TO 40LPM AND 90-100% WITH ANY ACTIVITY OR EATING. CORNET AND I.S. USE ENSURED THIS SHIFT WITH PT REACHING 1250ML ON I.S. COUGH CONTINUES WITH LIGHT VEE SPUTUM. NEWMAN CATHETER, QUANTITY SUFFICIENT. PICC LINE REMAINS HEPARIN LOCKED THROUGHOUT THIS SHIFT. BARRIER CREAM APPLIED TO REDDENED AREA ON COCCYX. NEW +2 PITTING EDEMA NOTED TO LEFT LOWER IBRAHIM AREA. RESTRAINTS PER [facility] REMAIN IN PLACE TO LOWER EXTREMITIES. OFFICES AT BEDSIDE. PT USES CALL LIGHT APPROPRIATLY.
--- NOTE | 2020-06-02 15:32 | NUR ---
MEDICATION DUE. PT O2 SATURATION DROPPING TO 80%. PT REPOSITIONED TO BACK PER PT REQUEST. O2 CLIMBS TO 90'S WITHOUT ADJUSTMENTS IN VAPOTHERM. MEDICATION GIVEN (SEE MAR). CONVERSATION HELD WITH PT REGARDING HIS WISHES. 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 PT DENIES ADDITIONAL REQEUSTS OR COMPLAINTS. O2 SATURATION AT 94% ON 35LPM AND 70%FIO2. PT DENIES ADDTIIONAL REQUESTS OR COMPLAINTS. CORNET I.S. USED REACHING 1250 ML. CALL LIGHT WITHIN REACH. BED RAILS UP. OFFICERS AT ROOMSIDE.
--- NOTE | 2020-06-02 16:56 | NUR ---
AFTERNOON ASSESSMENT AND MEDICATION DUE. 1 PERSON ASSIST UP TO CHAIR. COMPLETE BED BATH DONE. PT ABLE TO ASSIST BY WASHING CHEST AND ARMS. NEW GOWN AND SOCKS PROVIDED. LOTION APPLIED TO FEET, BARRIER CREAM TO COCCYX. VAPO THERM INCREASED TO 100% AND 40LPM WITH ACTIVITY. AFTER BED BATH PT WEANED TO 70%FIO2 AND 35LPM WITH O2 SATURATIONS MAINTAINING ABOVE 92%. PT DEMONSTRATES USE OF CORNET AND I.S. REACHING 1250ML. UNABLE TO ASCULATE LUNG, HEART AND BOWEL TONES RELATED TO PAPAR USE. ABDOMEN SOFT. EDEMA TO LEFT LOWER EXTREMITY IMPROVING, NOW +1 PITTING EDEMA. LEG RESTRAINTS REMAIN IN PLACE PER [facility] OFFICERS. PT DENIES ADDITIONAL REQUESTS OR COMPLAINTS. CALL LIGHT WITHIN REACH. PT EATING DINNER. OFFICERS REMAIN AT ROOMSIDE.
--- NOTE | 2020-06-02 17:45 | NUR ---
DINNER ARRIVED. PT REMAINS UP TO CHAIR EATING DINNER. O2 SATRUATION ABOVE 90% ON VAPOTHERAM SETINGS OF 35LPM AND 70% FIO2. NO ADDITIONAL REQUESTS OR COMPLAINTS. CALL SHELIA QUINN.
--- NOTE | 2020-06-02 18:16 | NUR ---
PT FINISHED WITH DINNER. VITALS TAKEN. PT REMAINS UP TO CHAIR. PT REPORTS HE IS "FEELING PRETTY GOOD" THIS EVENING. O2 SATURATION REMAINS ABOVE 92% ON VAPOTHERM SETTINGS OF 35LPM AND 70%FIO2. PT WATCHING TV. NO ADDITIONAL REQUESTS OR COMPLAINTS AT THIS TIME. CALL LIGHT WITHIN REACH.
--- NOTE | 2020-06-02 21:00 | NUR ---
SHIFT REPORT RECEIVED FROM DWAYNE WATKINS. ASSESSMENT COMPLETED AT THIS TIME. PT IS ALERT/ORIENTED, SITTING UP IN CHAIR, DENIES PAIN. ASSESSMENT LIMITED DUE TO PAPR PPE, PT REPORTS MILD SOB, DENIES CHEST PAIN. VAPOTHERM REMAINS AT 35L @ 70%. HR SINUS PER MONITOR. DENIES NAUSEA OR ABDOMINAL PAIN. SKIN HAS SCATTERED BRUISES. LLE HAS 1+ EDEMA PRESENT, RESTRAINTS TO BLE, ABLE TO FIT 2-3 FINGERS UNDERNEATH STRAP. NEWMAN PATENT, DRAINING FREELY, CATH CARE PROVIDED. PICC DRESSING C/D/I, NO REDNESS OR SWELLING NOTED AT SITE, BLOOD RETURN PRESENT, FLUSHES WITHOUT RESISTANCE, HEPARIN LOCKED. PT READY TO MOVE TO BED, INCREASED VAPOTHERM SETTINGS TO 40L @ 100% FOR ACTIVITY. PT TOLERATED WELL, NOW LAYING ON RIGHT SIDE. DISCUSSED PLAN WITH PT TO PRONE TONIGHT AND IF ABLE TO TOLERATE, TRY NON-REBREATHER OXYGEN DELIVERY. PT AGREEABLE. DENTURES CLEANSED, SOAKING IN BATHROOM. CALL LIGHT WITHIN REACH. CORRECTIONAL OFFICERS X2 AT DOOR.
--- NOTE | 2020-06-02 22:42 | NUR ---
PICC DRESSING CHANGED, STERILE TECHNIQUE MAINTAINED. PT POSITIONED PRONE, SATS DROPPED TO 88% WITH ACTIVITY, PT RECOVERED QUICKLY, SATS CURRENTLY 95%, VAPOTHERM CURRENTLY 35L @ 70%. R.T. CALLED, WILL COME PLACE PT ON NON-REBREATHER SOON.
--- NOTE | 2020-06-02 23:00 | NUR ---
PT NOW ON 15L NON-REBREATHER PER R.T.; PT REMAINS IN PRONE POSITION.
--- NOTE | 2020-06-03 01:30 | NUR ---
IN WITH R.T. TO PUT PT BACK ON VAPOTHERM, 35L @70%. PT WORE 15L NON-REBREATHER FOR ~2.5 HOURS AND TOLERATED WELL. NO TACHYCARDIA NOTED, RR:18-28, SPO2 MAINTAINED >90%. PT REMAINS MOSTLY PRONED, TIPPED ONTO LEFT SIDE, BED IN [place]SE [place]. ASSESSMENT COMPLETED AND UNCHANGED FROM PREVIOUS. PT DENIES REQUESTS OR COMPLAINTS AT THIS TIME. CALL LIGHT WITHIN REACH.
--- NOTE | 2020-06-03 03:10 | NUR ---
PT APPEARS TO BE SLEEPING SOUNDLY ON LEFT SIDE. NO APPARENT DISTRESS, RESPIRATIONS EVEN AND UNLABORED, VAPOTHERM REMAIN IN PLACE WITH SETTINGS UNCHANGED. RR:16, HR:55, SPO2: 100%. WILL ALLOW FOR REST AND CONTINUE TO MONITOR.
--- NOTE | 2020-06-03 04:49 | NUR ---
ASSESSMENT COMPLETED, REMAINS UNCHANGED FROM PREVIOUS. VAPOTHERM REMAINS IN PLACE AT 35L @ 70%. PICC DRESSING C/D/I, REMAINS HEPARIN LOCKED. NEWMAN REMAINS PATENT. VITAL SIGNS STABLE. LLE REMAINS EDEMATOUS, HOWEVER ANKLE RESTRAINTS REMAIN LOOSE ENOUGH TO FIT 2 FINGERS UNDERNEATH, CMS INTACT. PT PROVIDED WITH WARM BLANKET PER REQUEST, NO FURTHER REQUESTS OR COMPLAINTS AT THIS TIME. CALL LIGHT WITHIN REACH.
--- NOTE | 2020-06-03 06:44 | NUR ---
PT CONTINUES TO SLEEP. NO APPARENT DISTRESS. VAPOTHERM SETTINGS UNCHANGED.
--- NOTE | 2020-06-03 07:15 | NUR ---
Report received, orders acknowledged. Patient sleeping in bed, respirations even and unlabored. Vapotherm in place with settings of 35L and 70% Fi02, with an SpO2 of 95%. RR of 18, HR in the 60's. Two correctional officers sitting outside of room, patient in two-point restraints. Call light within reach.
--- NOTE | 2020-06-03 08:00 | NUR ---
Patient sleeping in bed, respirations even and unlabored. Vapotherm in place with settings at 35L and 70% FiO2, with SpO2 ranging in the low-90's. Vital signs taken, assessment complete. Santos catheter emptied of 100 mls of concentrated urine. IV medications given. PICC line flushes and returns blood per protocol, hep locked. Patient assisted into prone position with the bed in reverse [place]. Patient desaturated into mid-60's with movement, vapotherm settings increased to 40L and 95% FiO2. SpO2 slowly increases to 98%. Vapotherm titrated down to 35L and 70% FiO2 with SpO2 ranging from 96-99%. Patient denies further needs at this time, call light within reach.
--- NOTE | 2020-06-03 09:40 | NUR ---
Dr. Owens in room to assess patient and discuss POC
--- NOTE | 2020-06-03 10:05 | NUR ---
Patient proning in bed with sats in the upper 90's. Vapotherm settings at 35L and 65% FiO2. Patient assisted to sit up at the edge of bed with feet on the floor. Patient hyperoxygenated prior to movement with vapotherm settings at 40L and 99% FiO2. Patient sits up at edge of bed with feet on floor, patient desaturates to 65%. Patient encouraged to take slow, deep breaths through his nostrils, sats slowly climb. Patient cough is loose and moist, with mendez productive sputum noted. Acapella used two times. Patient assisted to sitting up in bed, breakfast delivered. Patient ate 100% of meal. SpO2 continues to climb into the upper 90's. Vapotherm settings titrated down to 35L and 65% FiO2. SpO2 ranges from 96-100% on these settings. RR of 20, HR in the 80's. Water refreshed. Patient denies further needs at this time. Call light within reach.
--- NOTE | 2020-06-03 11:00 | NUR ---
Patient sitting up in bed watching tv. Vapotherm in place with settings at 35L and 65% FiO2, SpO2 in the mid to low 90's. Patient hyperoxygenated prior to ambulating to the BSC. Vapotherm settings at 40L and 95% FiO2. Patient steady on feet, 1PA to BSC. Large bowel movement produced. HR in the 100's, RR in the low 30's while on the BSC. Patient back to bed with 1PA, assisted into prone position, bed in reverse trendelenburg. SpO2 climbs to the upper 90's. Vapotherm titrated down to 35L and 65% FiO2. SpO2 remains 96-100% with these settings, in this position. Patient denies further needs, call light within reach.
--- NOTE | 2020-06-03 13:01 | NUR ---
Patient sitting up in chair watching tv. Vapotherm in place, settings at 35L and 60% FiO2, with an SpO2 of 96%. RR of 18 and HR in the 80's. Two correctional officers sitting outside of the room, two-point restraints in place on ankles. Call light within reach.
--- NOTE | 2020-06-03 13:40 | NUR ---
Update recieved from Rn, no change.
--- NOTE | 2020-06-03 13:59 | NUR ---
Patient sitting up in chair watching tv. 100% of meal eaten. Vapotherm in place, settings of 35L and 60% FiO2 with an SpO2 in the mid to upper 90's. Lung sounds auscultated, dim and tight throughout all lobes. Patient hyperoxygenated to 40L and 99% FiO2 before ambulating back to bed. Patient steady on feet with 1PA. Patient now laying on left side in bed. Vapotherm settings titrated to 35L and 70% to maintain sats above 95%. Patient denies needs at this time, call light within reach.
--- NOTE | 2020-06-03 15:04 | NUR ---
Patient laying on left side with vapotherm in place. Settings of 35L and 70% FiO2, sats in the low 90's. Patient assisted to sitting up in bed, vapotherm increased to 40L and 99% FiO2 during movement. Patient uses acapella multiple times and has a nonproductive cough. Patient assisted to prone positioning with bed in reverse trendelenburg. Vapotherm settings titrated to 35L and 60%, with and SpO2 remaining in the mid 90's. Water refreshed, patient denies further needs at this time. Call light within reach.
--- NOTE | 2020-06-03 15:18 | NUR ---
Vapotherm settings titrated to 35L and 55% FiO2, SpO2 ranging from 94-96%. RR of 20, HR in the 60's. Patient denies needs. One foreign service officer in room at bedside, two-point restraints in place. Call light within reach.
--- NOTE | 2020-06-03 17:07 | NUR ---
Patient laying in bed watching tv. Vapotherm settings at 35L and 55% FiO2 with an SpO2 of 98%. Two correctional officers sitting outside of room, two-point restraints in place on ankles. Call light within reach.
--- NOTE | 2020-06-03 18:08 | NUR ---
Patient laying in bed watching tv. Vapotherm in place with settings of 35L and 55% FiO2 with an SpO2 in the upper 90's. PM medications given. Patient sitting up at edge of bed with feet on floor. Patient uses acapella and IS, as well as deep breathing and coughing. Cough is nonproductive. Vital signs taken, assessment complete. Patient assisted to chair for meal, 1PA. Patient steady on feet. Vapotherm increased to 40L and 99% FiO2 prior to ambulation with an SpO2 of 100%. Vapotherm titrated down to 35L and 55% FiO2 after several minutes in the chair with an SpO2 in the mid 90's. Warm blanket provided, water refreshed. Patient denies further needs at this time, call light within reach.
--- NOTE | 2020-06-03 20:39 | NUR ---
SHIFT REPORT RECEIVED FROM DWAYNE KUMARI. ASSESSMENT COMPLETED AT THIS TIME, LIMITED DUE TO PAPR PPE. PT IS ALERT/ORIENTED, DENIES PAIN. VAPOTHERM AT 35L @ 55%, REPORTS SOB AT REST, RESPIRATIONS DO NOT APPEAR LABORED, RATE 19. HR SINUS PER MONITOR, DENIES CHEST PAIN. DENIES NAUSEA OR ABDOMINAL PAIN. SKIN GROSSLY INTACT, SCATTERED BRUISES. 1+ EDEMA TO LLE, ANKLE RESTRAINTS LOOSE ENOUGH TO FIT 2 FINGERS UNDER, CMS INTACT, PT DENIES PAIN TO LLE. PICC DRESSING C/D/I, NO REDNESS OR SWELLING NOTED AT SITE, BLOOD RETURN PRESENT, FLUSHES WITHOUT RESISTANCE, HEPARIN LOCKED. NEWMAN PATENT, CATH CARE PROVIDED. COFFEE AND FRESH ICE WATER PROVIDED PER REQUEST. DENTURES CLEANED AND SOAKING BY BATHROOM SINK. PRE-OXYGENATED PT AT 40L AND 100% PRIOR TO AMBULATION FROM CHAIR TO BED, PT TOLERATED WELL, SATS MAINTAINED >90%. PT NOW IN BED AND VAPOTHERM SETTINGS BACK TO BASELINE. NO FURTHER REQUESTS AT THIS TIME. CALL LIGHT WITHIN REACH. CORRECTIONAL OFFICERS X2 REMAIN AT DOORWAY.
--- NOTE | 2020-06-03 22:00 | NUR ---
PT SLEEPING SOUNDLY, NO APPARENT DISTRESS. RESPIRATIONS EVEN AND UNLABORED, RR:17, HR:53, SPO2:98%, VAPOTHERM SETTINGS UNCHANGED. WILL ALLOW FOR REST AND CONTINUE TO MONITOR.
--- NOTE | 2020-06-04 00:38 | NUR ---
ASSESSMENT COMPLETED, REMAINS UNCHANGED FROM PREVIOUS. VAPOTHERM CONTINUES AT 35L @ 55%. PT DENIES PAIN AND NAUSEA. PICC DRESSING C/D/I, REMAINS HEPARIN LOCKED. RESTRAINTS REMAIN TO BILATERAL ANKLES, CMS INTACT. PT DENIES REQUESTS OR COMPLAINTS AT THIS TIME, CALL LIGHT WITHIN REACH.
--- NOTE | 2020-06-04 02:00 | NUR ---
PT CONTINUES TO SLEEP SOUNDLY, RR:17, HR:53, SPO2:95%. VAPOTHERM REMAINS AT 35L @ 55%. NO APPARENT DISTRESS, WILL ALLOW FOR REST AND CONTINUE TO MONITOR.
--- NOTE | 2020-06-04 04:20 | NUR ---
ASSESSMENT COMPLETED, UNCHANGED FROM PREVIOUS. VAPOTHERM CONTINUES AT 35L @55%. PICC DRESSING REMAINS C/D/I AND HEPARIN LOCKED. NEWMAN PATENT AND DRAINING FREELY. PT DENIES COMPLAINTS OR REQUESTS AT THIS TIME. CALL LIGHT WITHIN REACH.
--- NOTE | 2020-06-04 06:05 | NUR ---
PT'S SPO2 DECREASED TO 85% DUE TO THE NASAL CANNULA BECOMING DISPLACED. THIS RN IN TO ASSIST PT IN REPOSITIONING NC. PT REPOSITIONED HIMSELF HIGHER UP IN BED AND WITH ACTIVITY, DESATURATED TO 83%. INCREASED VAPOTHERM SETTINGS FOR ~1 MINUTE TO 40L @ 100% AND THEN WAS ABLE TO TITRATE SETTINGS BACK TO 35L @ 55%. SPO2 CURRENTLY 90%.
--- NOTE | 2020-06-04 07:30 | NUR ---
Report received, orders acknowledged. Patient sleeping in bed, respirations even and unlabored. SpO2 of 94% on vapotherm with settings of 35L and 55% FiO2. Two correctional officers sitting outside of room, two-point restraints in place. Call light within reach.
--- NOTE | 2020-06-04 08:10 | NUR ---
Update from RN. No change.
--- NOTE | 2020-06-04 08:31 | NUR ---
Patient sleeping in bed, rouses easily to voice. Vapotherm settings in place at 35L and 55% FiO2 with sats in the mid-90's. Vital signs taken, assessment complete. AM medications given. Santos catheter emptied of 250 mls of yellow urine. Patient reports "I slept good last night." Patient assisted to prone position, SpO2 drops to 65% with movement. Vapotherm increased to 40L and 100% FiO2, sats begin climbing into the mid-90's. Patient denies SOB with desaturation. Vapotherm titrated to 35L and 55% FiO2, SpO2 remains in the mid-80's. Vapotherm titrated to 35L and 80% FiO2, SpO2 climbs to the low to mid-90's. One medical laboratory technical officer in room at bedside, two-point restraints on patient. Denies needs at this time, call light within reach.
--- NOTE | 2020-06-04 09:45 | NUR ---
Dr. Owens in room to assess patient and discuss POC
--- NOTE | 2020-06-04 09:55 | NUR ---
Patient turns onto left side from the prone position, SpO2 drops to the mid-70's. Vapotherm settings increased to 40L and 100% FiO2. SpO2 slowly rises to the low 90's after several minutes. HR in the 90's during movement, RR remains 18-24. Patient reports feeling "a little short of breath." Patient repositioned in bed to high fowlers position. Breakfast delivered, patient eats 100% of meal. SpO2 remains in the low to mid-90's while eating meal with vapotherm in place. Warm clothes provided patient to wash face. One collections officer in room at bedside, two-point restraints in place on patient's ankles. Patient denies needs at this time, call light within reach.
--- NOTE | 2020-06-04 11:14 | NUR ---
Patient laying in bed on left side, respirations even and unlabored. Vapotherm in place with settings of 35L and 55% FiO2, with an SpO2 of 94%. Two correctional officers sitting outside of room, two-point restraints in place. Call light within reach.
--- NOTE | 2020-06-04 12:30 | NUR ---
Patient laying on left side, respirations even and unlabored. Vital signs taken, assessment complete. Water refreshed. Vapotherm in place with settings at 35L and 55% FiO2, SpO2 in the mid-90's. Patient assisted into upright position, sitting up in bed. Lunch delivered, patient ate 100% of meal. Patient denies further needs at this time, call light within reach.
--- NOTE | 2020-06-04 13:18 | NUR ---
PT HAS COVID PRECAUTIONS, [facility] GUARDS OUTSIDE DOOR
--- NOTE | 2020-06-04 14:44 | NUR ---
Patient sleeping on right side, respirations even and unlabored. SpO2 of 94% on vapotherm, settings at 35L and 55% FiO2. Two correctional officers sitting outside of room, two-point restraints on ankles on patient. Call light within reach.
--- NOTE | 2020-06-04 16:55 | NUR ---
Patient laying in prone position with bed in reverse trendelenburg. Rouses easily to voice. Vital signs taken, assessment complete. Patient assisted to sitting position in bed. Dinner delivered. Vapotherm settings increased to 35L and 80% FiO2 to assist with activity of eating meal. SpO2 in the upper 90's. Patient denies needs, call light within reach.
--- NOTE | 2020-06-04 18:30 | NUR ---
RT in room to assess patient. Crackles auscultated in bases, dim in uppers. No wheezing noted. Patient ate 100% of meal. Patient sitting up in bed watching tv. Vapotherm at 35L and 80% FiO2 to assist with activity of eating meal to maintain saturations. SpO2 of 99%. Vapotherm titrated to 35L and 55% FiO2, patient saturations ranging from 87-95%. Coffee provided, patient denies further needs. Call light within reach.
--- NOTE | 2020-06-04 20:30 | NUR ---
SHIFT REPORT RECEIVED FROM DWAYNE KUMARI. ASSESSMENT COMPLETED AT THIS TIME, LIMITED DUE TO PAPR PPE. PT IS ALERT/ORIENTED, SITTING UP IN BED. DENIES PAIN, CHEST PAIN, AND NAUSEA. REPORTS MILD SOB AT REST. VAPOTHERM AT 35L @55% PRODUCTIVE COUGH OF SMALL AMOUNT OF VEE SPUTUM. HR SINUS PER MONITOR. SKIN GROSSLY INTACT WITH SCATTERED BRUISES. 1+EDEMA TO LLE, SEEMS SLIGHTLY IMPROVED FROM LAST NIGHT, PT DENIES PAIN IN LEFT LEG, CMS INTACT. PICC DRESSING C/D/I, NO SWELLING/REDNESS AT SITE, BLOOD RETURN PRESENT, FLUSHES WITHOUT DIFFICULTY, HEPARIN LOCKED. NEWMAN PATENT, CATH CARE PROVIDED. FRESH ICE WATER PROVIDED. PT DENIES FURTHER REQUESTS AT THIS TIME. CALL LIGHT WITHIN REACH.
--- NOTE | 2020-06-04 22:46 | NUR ---
PT'S SPO2 WAS MAINTAINING 85-88%, PT POSITIONED ON LEFT SIDE BUT HAD SLID DOWN IN THE BED. PRE-OXYGENATED PT AT 40L @100% AND INSTRUCTED HIM TO SCOOT BACK UP IN THE BED AND TURN TO RIGHT SIDE. ABLE TO TITRATE VAPOTHERM BACK TO 35L @55% AND NOW SPO2 IS 95%. NEWMAN EMPTIED.
--- NOTE | 2020-06-05 00:50 | NUR ---
PT LAYING ON RIGHT SIDE, NO APPARENT DISTRESS. RESPIRATIONS EVEN AND UNLABORED, VAPOTHERM REMAINS IN PLACE AT 35L @ 55%, SPO2 CURRENTLY 95%. HR SINUS EAMON PER MONITOR. PICC DRESSING REMAINS C/D/I AND HEPARIN LOCKED. NEWMAN PATENT, DRAINING FREELY. RESTRAINTS TO BILATERAL ANKLES REMAIN IN PLACE AND LOOSE ENOUGH TO FIT 2-3 FINGERS UNDERNEATH. ALLOWING FOR REST AND CONTINUING TO MONITOR.
--- NOTE | 2020-06-05 02:36 | NUR ---
PT APPEARS TO BE SLEEPING, NO APPARENT DISTRESS. RESPIRATIONS EVEN AND UNLABORED, VAPOTHERM SETTINGS UNCHANGED. RR:18, HR:57, SPO2:97%.
--- NOTE | 2020-06-05 04:26 | NUR ---
ASSESSMENT COMPLETED, UNCHANGED FROM PREVIOUS. VAPOTHERM SETTINGS UNCHANGED. NO COMPLAINTS OR REQUESTS AT THIS TIME. RR:17, HR:57, SPO2:96%.
--- NOTE | 2020-06-05 06:11 | NUR ---
PT SLEEPING ON LEFT SIDE, NO APPARENT DISTRESS. RESPIRATIONS EVEN AND UNLABORED, VAPOTHERM SETTINGS UNCHANGED. RR:16, HR:55, SPO2:93%.
--- NOTE | 2020-06-05 09:45 | NUR ---
PT VAPOTHERM TITRATED UP TO 40L/85% DUE TO DESAT. PT UP TO BEDSIDE COMMODE HAD EXTRA LARGE SOFT BM. ALL LINENS CHANGED ON BED. PT BACK TO BED, THEN GIVEN BREAKFAST. PT ABLE TO EAT 100% OF FOOD. PT C/O 5/10 HEADACHE, 500 MG PO TYLENOL. PT REQUIRES HIGHER AMOUNTS OF O2.
--- NOTE | 2020-06-05 12:32 | NUR ---
PT COVID POSITIVE,EOCI GUARDS AT DOOR. WILL FOLLOW NEEDED
--- NOTE | 2020-06-05 17:05 | NUR ---
FULL BED BATH DONE, WASHED PT HAIR, PT ASSISTS WITH WASHING BODY PARTS HE CAN REACH. NEWMAN CATH CARES DONE. PT GOWN CHANGED. PT DENIES NAUSEA AND SOB, GIVEN 500 MG PO TYLENOL FOR GENERALIZED 3/10 DISCOMFORT. FOAM AYLVEN DRESSING APPLIED TO COCCIX FOR PREVENTION OF SKIN BREAKDOWN PT IS DM. PT SERVED DINNER, HAS CALL LIGHT WITHIN REACH, DENIES ANY OTHER NEEDS AT THIS TIME.
--- NOTE | 2020-06-05 20:15 | NUR ---
SHIFT REPORT RECEIVED FROM DWAYNE GAUTHIER. ASSESSMENT COMPLETED AT THIS TIME, LIMITED DUE TO PAPR PPE. PT IS ALERT/ORIENTED, DENIES PAIN, AFEBRILE. RESPIRATIONS EVEN AND UNLABORED, REPORTS MILD SOB AT REST, PRODUCTIVE COUGH OF SMALL AMOUNT OF VEE SPUTUM, VAPOTHERM AT 40L @85%. HR SINUS PER MONITOR. DENIES NAUSEA. SKIN GROSSLY INTACT, SCATTERED BRUISES, TRACE EDEMA TO LLE, MOSTLY RESOLVED. PICC DRESSING C/D/I, NO REDNESS/SWELLING AT SITE, BLOOD RETURN PRESENT, FLUSHES WITHOUT RESISTANCE, HEPARIN LOCKED. NEWMAN PATENT, YELLOW URINE, CATH CARE PROVIDED. CORRECTIONAL RESTRAINTS TO BILATERAL ANKLES, CMS INTACT. PT DENIES REQUESTS, CALL LIGHT WITHIN REACH.
--- NOTE | 2020-06-05 22:27 | NUR ---
PT SLEEPING ON RIGHT SIDE, NO APPARENT DISTRESS, RESPIRATIONS EVEN AND UNLABORED. VAPOTHERM SETTINGS UNCHANGED. RR:20, HR:71, SPO2:96%. WILL ALLOW FOR REST AND CONTINUE TO MONITOR.
--- NOTE | 2020-06-06 00:30 | NUR ---
ASSESSMENT COMPLETED. SPO2: 100%, TITRATED VAPOTHERM TO 35L @85. OTHERWISE ASSESSMENT IS UNCHANGED. PT PROVIDED WITH WARM BLANKET PER REQUEST, DENIES FURTHER REQUESTS OR COMPLAINTS AT THIS TIME. CALL LIGHT WITHIN REACH.
--- NOTE | 2020-06-06 02:19 | NUR ---
PT RESTING COMFORTABLY ON BACK, NO APPARENT DISTRESS. RESPIRATIONS EVEN AND UNLABORED, VAPOTHERM SETTINGS UNCHAGED. RR:24, HR:78, SPO2:96%.
--- NOTE | 2020-06-06 04:20 | NUR ---
ASSESSMENT COMPLETED, UNCHANGED FROM PREVIOUS. VAPOTHERM SETTINGS UNCHANGED. PT DENIES COMPLAINTS OR REQUESTS AT THIS TIME. CALL LIGHT WITHIN REACH.
--- NOTE | 2020-06-06 06:44 | NUR ---
PT RESTING IN BED WITH EYES CLOSED, NO APPARENT DISTRESS. RESPIRATIONS EVEN AND UNLABORED. VAPOTHERM REMAINS AT 35L @ 85%. SPO2 CURRENTLY 95%.
--- NOTE | 2020-06-06 07:45 | NUR ---
RESP THERAPY IN THE ROOM TO DO ASSESMENT.
--- NOTE | 2020-06-06 09:00 | NUR ---
PT REPOSTIONED UP IN BED INDEPENDENTLY TO EAT BREAKFAST. PT DECLINED OFFER TO GET UP TO CHAIR DUE TO FATIGUE. PT REPORTS NOT SLEEPING WELL LAST NIGHT. PT HAS INCREASED O2 NEEDS WITH REPOSITION IN BED AND WITH EATING. PT DENIES NAUSEA, AND FEELING SOB, PT ALSO DENIES PAIN; HOWEVER GIVEN 500 MG PO TYLENOL FOR GENERALIZED DISCOMFORT ASSOCIATED WITH BED REST. PT VITALS ARE WNL AT THIS TIME. PT REMAINS ALERT AND ORIENTED X4, COOPERATIVE. PICC LINE SITE IS INTACT, BLOOD RETURN IS BRISK, FLUSHES EASILY. PT SKIN ASSESED FOR PT SAFETY AND COMFORT, SKIN IS INTACT.
--- NOTE | 2020-06-06 14:14 | NUR ---
PT RESTING IN HIS BED AND DENIES ANY SOB AT REST. SAT 93% ON VAPOTHERM 35L, 85% WITH A RR OF 20. UNABLE TO LISTEN TO HIS LUNG DUE TO PAPR PPE. NO NEW COMPLAINTS, SEE ASSESSMENT.
--- NOTE | 2020-06-06 14:21 | NUR ---
PT NOW EATING HIS LUNCH WITH NO NOTED CHANGE IN HIS O2 SAT OR RR AT THIS TIME.
--- NOTE | 2020-06-06 18:45 | NUR ---
pt washed face and hands with warm soapy wash cloths. pt up to chair with one person standby assist for cord management. pt mcbride cath cares done. all linens changed on bed, and clean gown on pt. pt vapotherm FIO2 titrated up to 95% for activity, then tolerates titration back down to 35L/90% after activity. dentures taken out of pt mouth and cleaned, then soaking in cup in bathroom. pt is alert and oriented x4, denies pain, nausea, and sob.
--- NOTE | 2020-06-06 19:45 | NUR ---
REPORT RECEIVED FROM ABRAHAN RICE. PT IS SITTING UP IN CHAIR WITH VAPOTHERM IN PLACE 35L/90%. GUARDS SITTING OUTSIDE ROOM WATCHING PATIENT.
--- NOTE | 2020-06-06 19:55 | NUR ---
IN TO DO ASSESSMENT AND HS MEDS. LUNGS HAVE COARSE CRACKLES IN BASES, PT HAS PRODUCTIVE SOUNDING COUGH. DENIES PAIN/SOB. BACK TO BED PER REQUEST, HR GOES FROM 90'S TO 110 WHILE PIVOTING TO BED, THEN QUICKLY BACK DOWN TO 90'S. POSITIONED IN BED, MEDS GIVEN. PT LEFT TO TRY TO SLEEP, CALL LIGHT IN HAND. VAPOTHERM SETTINGS REMAINED UNCHANGED, 35L/90% WITH RR 18 EVEN AND UNLABORED.
--- NOTE | 2020-06-07 01:32 | NUR ---
PATIENT SLEEPING SOUNDLY. WOKE EASILY TO TOUCH. REPORTS BEING COMFORTABLE, DENIES NEEDS. O2 SATS 94-96% ON VAPOTHERM 35L 90% Fi02, TITRATED TO 85%.
--- NOTE | 2020-06-07 06:00 | NUR ---
PATIENT SLEEPING SOUNDLY. WOKE EASILY TO VOICE. ASSISTED PATIENT UP TO THE BSC. PATIENT HAD LARGE BM. VAPOTHERM 40L 100% WITH TRANSFER. PATIENT DESAT TO LOW 80'S. PATIENT INTO RECLINER. VAPOTHERM 35L 90% Fi02. PATIENT RECOVERED AFTER SEVERAL MINS. CALL LIGHT IN REACH. PATIENT DENIED OTHER NEEDS.
--- NOTE | 2020-06-07 07:15 | NUR ---
RECEIVED REPORT FROM MIRANDA RICE. PT UP TO CHAIR THIS AM AND FROM REPORT PTIS ON 35L AND 90%FIO2. PTS SATS AT SHIFT CHANGE ARE 99-100% WITH A GOOD AVE FORM.
--- NOTE | 2020-06-07 09:05 | NUR ---
IN PTS ROOM WITH LEANA. PT SITTING UP IN CHAIR. PT STATES HIS PAIN IS 4/10, PROVIDED PT WITH 500MG OF TYLENOL AT THIS TIME. PT HAS NO OTHER COMPLAINTS OR CONCERNS AT THIS TIME. DISCUSSED WITH PT THE PLAN FOR THE DAY OF HAVING TO CHANGE HIS CATHETER OUT AND DOING A BED BATH. PT AGREEABLE TO TREATMENT AT THIS TIME.
--- NOTE | 2020-06-07 12:30 | NUR ---
IN PTS ROOM TO DO MIDDAY ASSESSMENT AND TO GIVE PT HIS LUNCH TRAY. PT STATES THAT HIS PAIN RESOLVED AFTER HAVING THE TYLENOL THIS AM. PT STATES THAT HE IS NOT FEELING SHORT OF BREATH EVEN THOUGH HIS REPIRATORY RATE IS 25-28. PT STATES THAT HE NEEDS NOTHING AT THIS TIME AND IS STILL COMPLIANT WITH CARE AND THE PLAN TO CHANGE HIS CATHETER OUT THIS AFTERNOON. PT STILL UP TO CHAIR, ASKED PT TO SCOOCH UP IN THE CHAIR BECAUSE HE WAS LOOKING A LITTLE SLUMPED. PT ABLE TO SCOOCH HIMSELF UP IN THE CHAIR AND STATED THAT HE FELT MORE COMFORTABLE AFTER DOING SO. THIS RN OPENED PTS BLINDS TO ALLOW MORE SUNLIGHT IN, PT APPRECIATED THIS AND HAD A SMILE ON HIS FACE.
--- NOTE | 2020-06-07 14:00 | NUR ---
IN PTS ROOM PER PT REQUEST TO GO BACK TO BED. THIS RN IN PTS ROOM TO ASSIST PT BACK TO BED. PT ABLE TO STAND AND TRANSFER TO BED. PT DID WOBBLE A BIT WHEN TRANSFERRING DUE TO WEARING INSTUITIONAL ANKLE RESTRAINTS. THIS RN IN PTS ROOM TO CHANGE PTS NEWMAN- OLD NEWMAN REMOVED DUE TO LONGEVITY OF HAVING IT IN. PT TOLERATED WELL HAVING NEW NEWMAN CATHETER PLACED.
--- NOTE | 2020-06-07 17:45 | NUR ---
IN PTS ROOM TO GIVE HIM HIS EVENING MEDS AND DO EVENING ASSESSMENT. PT IN BED RESTING WHEN THIS RN WALKED IN ROOM WITH GUARD BUT WOKE UP TO SOUND. PT STATES PAIN IS 6/10, THIS RN PROVIDED PT WITH 500MG OF TYLENOL AT THIS TIME FOR GENERALIZED PAIN. PT TOLERATING OXYGEN WELL, PT DOES DE-SAT TO MID 80'S WHEN HIS NASAL CANNULA SLIPS OUT OF HIS NAIRS SLIGHTLY. PT DOES NOT FEEL SHORT OF BREATH WHEN THIS HAPPENS. PT DOES NOT HAVE ANY MORE COMPLAINTS OR CONCERNS AT THIS TIME.
--- NOTE | 2020-06-07 19:30 | NUR ---
SHIFT REPORT RECEIVED. PATIENT RESTING IN BED, APPEARS TO BE SLEEPING. O2 SATS 95% ON VAPOTHERM 35L 85%.
--- NOTE | 2020-06-07 20:23 | NUR ---
EVENING MEDS PROVIDED. PATIENT TOLERATED WELL. REPORTS HAVING A BETTER DAY TODAY BUT IS MORE TIRED THAN HE HAS BEEN. NEB TREATMENT PROVIDED. PATIENT DID CPT AND IS EXERCISES. ASSISTED PATIENT WITH EVENING CARES. ALLYVEN PLACED ON HIS COCCYX FOR PROTECTION. ASSISTED PATIENT TO TURN TO LEFT SIDE. VS STABLE. VAPOTHERM TITRATED TO 35L 80% Fi02, FROM 85% Fi02. PATIENT DENIED FURTHER NEEDS. CALL LIGHT IN REACH. LIGHTS DIMMED AND TV OFF PER REQUEST.
--- NOTE | 2020-06-07 23:00 | NUR ---
PATIENT APPEARS TO BE SLEEPING SOUNDLY. TURNED ON LEFT SIDE. O2 SATS MID 90'S ON VAPOTHERM AT 35L 85% Fi02. ALLOWED PATIENT TO REST. CALL LIGHT IN REACH.
--- NOTE | 2020-06-08 01:00 | NUR ---
PATIENT CONTINUES TO SLEEP SOUNDLY. TOLERATING VAPOTHERM AT 35L 80% Fi02. O2 SATS IN MID 90'S. RR 20.
--- NOTE | 2020-06-08 04:00 | NUR ---
PATIENT DESAT WITHOUT ANY INDICATION. HR ELEVATED TO 110-120. DESAT TO 60'S ON VAPOTHERM 35L 80% Fi02. TITRATED PATIENT TO 40L 100% Fi02 WITH MINIMAL IMPROVEMENT. ASSISTED PATIENT TO TURN TO THE PRONE POSITION. PATIENT IMPROVED TO 90% 02 SAT AFTER 8-10 MINS. RT CONTACTED. PATIENT TOLERATING PRONE POSITION FOR NOW. WILL CONTINUE TO MONITOR.
--- NOTE | 2020-06-08 05:15 | NUR ---
PATIENT CONTINUES TO WAX AND WANE ON O2 SATS WITHOUT ACTIVITY. O2 SATS FLUCUATES BETWEEN THE 70'S AND 90'S. RR 30'S. PATIENT IS MORE LETHARGIC THIS MORNING. HR CONTINUES TO BE ELEVATED. DISCUSSED WITH RT. MD NOTIFIED.
--- NOTE | 2020-06-08 07:30 | NUR ---
Report received, orders acknowledged. Patient laying on right side, vapotherm in place with settings of 35L and 85% FiO2. SpO2 of 97%, RR of 30. Call light within reach.
--- NOTE | 2020-06-08 08:00 | NUR ---
Patient laying in bed with vapotherm in place at 35L and 85% FiO2. SpO2 ranges from 87% to 93%, RR in the upper 20's. HR in the 90's. Vital signs taken, assessment complete. AM medications given. RT in room, breathing tx given. Warm clothes provided to wash face, water refreshed. One campus security officer in room at bedside, two-point restraints in place. Call light within reach.
--- NOTE | 2020-06-08 10:00 | NUR ---
Patient laying in bed, vapotherm in place with settings at 35L and 85% FiO2. SpO2 remains in the mid-90's. PICC line hep locked. Patient preoxygenated with vapotherm at 40L and 99% prior to movement. Patient assisted into prone position with the bed in reverse trendelenburg. Desaturates to 75% with movement, SpO2 slowly increases to low 90's after several minutes. Pillows placed for comfort in prone. HR in the low 100's, RR in the low 30's. HR lowers to 90's, RR in the mid-20's after several minutes in the prone position. Denies needs at this time, call light within reach.
--- NOTE | 2020-06-08 10:42 | NUR ---
PATIENT SLEEPING IN BED. BURGLAR ALARM ASSEMBLER JUST CAME OUT. NO CHANGES AT THIS TIME. EOCI GUARDS OUTSIDE OF ROOM AT DOORWAY.
--- NOTE | 2020-06-08 11:30 | NUR ---
Dr. Uriostegui in room to assess patient and discuss POC
--- NOTE | 2020-06-08 12:02 | NUR ---
Patient laying in bed with eyes closed. Vapotherm in place with settings at 40L and 100% FiO2. SpO2 ranging from 97-100%. HR in the 90's, RR in the upper 20's. One seaman officer in room at bedside, two-point restraints in place. Call light within reach.
--- NOTE | 2020-06-08 12:21 | NUR ---
Transport orders confirmed to [facility]. Patient laying in bed, vapotherm at 40L and 100%. SpO2 of 94%, RR of 30. HR in the 90's. One project control officer in room at bedside, two-point restraints in place. This RN to remain in room.
--- NOTE | 2020-06-08 13:00 | NUR ---
RT in room. Patient laying in bed with vapotherm in place with settings at 40L and 100% FiO2, SpO2 in the mid 80's to low 90's. RR in the upper 20's. HR in the 100's. RT setting up ventilator. One marine safety officer in room with patient, two-point restraints in place. SURFACE HYDROLOGIST and PAYROLL AND BENEFITS ASSISTANT in room to intubate patient. Patient sedated, tube placed at 22cm at the gums. Vent settings per RT. SpO2 of 98%, ETCO2 in the low 40's. Chest xray taken to check for placement of ET tube. After several minutes, SpO2 drops to 81% with the ETCO2 rising to the low 60's. Patient bagged with ambu bag, SpO2 rises to 98% with manual ventilation. RT in room during desaturation. ET tube advanced 4 more cm per MD order based on results of chest xray. ET tube now placed at 26 cm at the gums. Versed gtt initiated at 2mg/hr.
--- NOTE | 2020-06-08 13:15 | NUR ---
Patient blood pressure increasing to 160-170's systolic and HR increasing into the 120-130's. 50 mcg of fentanyl given and 1 mg of versed given. BP decreases to 140's systolic and HR decreases to 110's. Patient sedated, RASS score of -3. Life flight RNs in room with patient, RT in room with patient. One armed custom protection officer in room, two-point restraints in place.
== END 2020-06-08 13:30 | disposition short-term general hospital (02) | DRG 177 ==
LOC: ED 20:42 → CCU 22:59
PROVIDERS: ADMIT Internal Medicine
PROC: 02HV33Z Insertion of Infusion Device into Superior Vena Cava, Percutaneous Approach (ICD-10-PCS; 2020-05-19)
PROC: 0BH17EZ Insertion of Endotracheal Airway into Trachea, Via Natural or Artificial Opening (ICD-10-PCS; principal; 2020-06-08)
DX: U07.1 COVID-19 (principal); J12.89 Other viral pneumonia; J96.01 Acute respiratory failure with hypoxia; E87.1 Hypo-osmolality and hyponatremia; E11.9 Type 2 diabetes mellitus without complications; I10 Essential (primary) hypertension; E78.5 Hyperlipidemia, unspecified; R09.3 Abnormal sputum; N31.9 Neuromuscular dysfunction of bladder, unspecified; F32.9 Major depressive disorder, single episode, unspecified; N40.1 Benign prostatic hyperplasia with lower urinary tract symptoms; R39.14 Feeling of incomplete bladder emptying; Z87.891 Personal history of nicotine dependence; Z88.0 Allergy status to penicillin; Z79.899 Other long term (current) drug therapy; Z79.84 Long term (current) use of oral hypoglycemic drugs; Z79.1 Long term (current) use of non-steroidal anti-inflammatories (NSAID)
CPT/HCPCS: 31500; 36569; 36600; 71045; 71260; 74018; 80048; 80053; 82803; 83036; 83605; 83735; 83880; 84100; 85025; 85379; 87070; 87077; 87186; 87205; 94002; 94640; 94667; 94668; 94799; 99285-25; C1751; J0330; J0692; J1100; J1650; J1940; J1956; J2250; J2370; J2704; J2920; J3010; J3475; J7030; J7050